=== PATIENT | female | born 1955 | race Caucasian/White ===

== ENCOUNTER 2017-04-16 10:24 | Emergency (ER) | payer MEDICARE, MEDICAID ==
--- NOTE | 2017-04-16 10:23 | EDM.PDOC ---
ED HPI GENERAL MEDICAL PROBLEM - General Chief Complaint: Lower Extremity Injury/Pain Stated Complaint: RT LEG Time Seen by Provider: 04/16/17 10:05 Source of Information: Reports: Patient, EMS, Old Records History Limitations: Reports: No Limitations - History of Present Illness INITIAL COMMENTS - FREE TEXT/NARRATIVE: 62 yo female with chronic pain presents with multiple complaints. Lives alone in an apt and is not doing well. Recently had her pain meds decreased. Is awaiting word from [place] to see if they might have anything to offer her. Called home health today and they casually advised that perhaps she should be in the hospital, in turn she called 911. Admits that her problem is not new, no new injury or sx's. 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: Other (see below) (none) Right Leg Pain Score (Numeric/FACES): 7 - Related Data Allergies Allergy/AdvReac Type Severity Reaction Status Date / Time atenolol [From Tenoretic 50] Allergy Rash Verified 04/16/17 10:15 chlorthalidone Allergy Rash Verified 04/16/17 10:15 [From Tenoretic 50] ciprofloxacin [From Cipro] Allergy Cannot Verified 04/16/17 10:15 Remember ciprofloxacin HCl Allergy Cannot Verified 04/16/17 10:15 [From Cipro] Remember diclofenac sodium Allergy Cannot Verified 04/16/17 10:15 [From Voltaren] Remember ibuprofen [From Advil] Allergy Cannot Verified 04/16/17 10:15 Remember iodine Allergy Hives Verified 04/16/17 10:15 Penicillins Allergy Cannot Verified 04/16/17 10:15 Remember propranolol HCl Allergy Swelling Verified 04/16/17 10:15 [From Inderal LA] Sulfa (Sulfonamide Allergy Rash Verified 04/16/17 10:15 Antibiotics) verapamil [Verapamil] Allergy Hives Verified 04/16/17 10:15 IVP DYES Allergy Hives Uncoded 04/16/17 10:15 METAL Allergy Rash Uncoded 04/16/17 10:15 Home Meds: Home Meds FLUoxetine [PROzac] 40 mg PO BEDTIME 07/26/13 [History] Furosemide [Lasix] 20 mg PO DAILY 07/26/13 [History] Levothyroxine [Synthroid] 100 mcg PO ACBRK 07/26/13 [History] Modafinil [Provigil] 200 mg PO DAILY PRN 07/26/13 [History] Pregabalin [Lyrica] 300 mg PO 0800,1800 07/26/13 [History] Topiramate [Topamax] 200 mg PO BEDTIME 07/26/13 [History] buPROPion [Wellbutrin XL] 300 mg PO DAILY 07/26/13 [History] cloNIDine [Catapres] 0.1 mg PO DAILY tablet 04/19/15 [Rx] metFORMIN [Glucophage] 500 mg PO BIDM tablet 04/19/15 [Rx] Omeprazole 20 mg PO DAILY PRN 05/31/15 [History] Potassium Chloride 10 meq PO 5XDAY 05/31/15 [History] rOPINIRole [Requip] 0.5 mg PO BEDTIME 05/31/15 [History] Morphine [MS Contin] 30 mg PO TID 08/20/15 [History] SUMAtriptan Succinate [Imitrex] 100 mg PO ASDIRECTED PRN 10/31/15 [History] Doxycycline [Vibra-Tabs] 100 mg PO Q12H #12 tablet 11/02/15 [Rx] predniSONE [Prednisone] 10 mg PO DAILY #10 tablet 11/02/15 [Rx] Past Medical History HEENT History: Reports: Impaired Vision, Sinusitis Other HEENT History: wears glasses Cardiovascular History: Reports: Hypertension Respiratory History: Reports: Sleep Apnea Gastrointestinal History: Reports: Other (See Below) Other Gastrointestinal History: had 4 inches of colon removed for krohns in 2011 Genitourinary History: Reports: Urinary Incontinence PROSTHETIST History: Reports: Musculoskeletal History: Reports: Fibromyalgia, Osteoarthritis, Other (See Below ) Other Musculoskeletal History: bone spurs Neurological History: Reports: Migraines Psychiatric History: Reports: Depression Endocrine/Metabolic History: Reports: Diabetes, Type II, Obesity/BMI 30+ Hematologic History: Reports: Anemia Immunologic History: Reports: Other (See Below) Other Immunologic History: torrey - Past Surgical History HEENT Surgical History: Reports: Naso-Sinus Surgery GI Surgical History: Reports: Appendectomy, Cholecystectomy, Colonoscopy, Hernia Repair/Other Endocrine Surgical History: Reports: Other (See Below) Musculoskeletal Surgical History: Reports: Joint Replacement Social & Family History - Family History HEENT: Reports: None Cardiac: Reports: None Respiratory: Reports: COPD Other Respiratory Family Hisory: father GI: Reports: Cirrhosis Other GI Family History: mother : Reports: None OBGYN: Reports: None Musculoskeletal: Reports: None Endocrine/Metabolic: Reports: None Hematologic: Reports: None Immunologic: Reports: None Dermatologic: Reports: None Oncologic: Reports: None - Tobacco Use Smoking Status *Q: Never Smoker Second Hand Smoke Exposure: No - Alcohol Use Days Per Week of Alcohol Use: 0 - Recreational Drug Use Recreational Drug Use: No Review of Systems - Review of Systems Review Of Systems: See Below Constitutional: Reports: No Symptoms Respiratory: Reports: No Symptoms Cardiovascular: Reports: No Symptoms GI/Abdominal: Reports: No Symptoms Genitourinary: Reports: No Symptoms Musculoskeletal: Reports: Leg Pain (right) Skin: Reports: No Symptoms Neurological: Reports: Other (pain down R leg) ED EXAM, GENERAL - Physical Exam Exam: See Below Exam Limited By: No Limitations General Appearance: Alert, WD/WN, No Apparent Distress, Obese Respiratory/Chest: No Respiratory Distress, Lungs Clear, Normal Breath Sounds, No Accessory Muscle Use Cardiovascular: Regular Rate, Rhythm GI/Abdominal: Soft, Non-Tender Back Exam: Normal Inspection Extremities: Normal Inspection Neurological: Alert, Oriented, CN II-XII Intact, Normal Cognition, No Motor/ Sensory Deficits, Inattentive Psychiatric: Normal Affect, Normal Mood Skin Exam: Warm, Dry, Intact, Normal Color, No Rash Lymphatic: No Adenopathy Course - Vital Signs Last Recorded V/S: Last Vital Signs Temp 36.6 C 04/16/17 10:16 Pulse 89 04/16/17 10:16 Resp 18 04/16/17 10:16 BP 123/64 04/16/17 10:16 Pulse Ox 96 04/16/17 10:16 - Orders/Labs/Meds Orders: Active Orders 24 hr Category Date Time Status Consult to Tractor Trailer Mechanic [CONS] Routine Cons 04/16/17 10:16 Active Meds: Medications Discontinued Medications Generic Name Dose Route Start Last Admin Trade Name Freq PRN Reason Stop Dose Admin Ketorolac Tromethamine 30 mg 04/16/17 10:15 04/16/17 10:29 Toradol IM 04/16/17 10:16 30 mg ONETIME ONE Administration Departure - Departure Time of Disposition: 10:42 Disposition: Home, Self-Care 01 Condition: Good Clinical Impression: Chronic pain Qualifiers: Chronic pain type: chronic pain syndrome Qualified Code(s): G89.4 - Chronic pain syndrome - Discharge Information Referrals: Joesph Dasilva MD [Primary Care Provider] - Forms: ED Department Discharge - My Orders Last 24 Hours: My Active Orders 04/16/17 10:16 Consult to Tractor Trailer Mechanic [CONS] Routine - Assessment/Plan Last 24 Hours: My Active Orders 04/16/17 10:16 Consult to Tractor Trailer Mechanic [CONS] Routine
[~2017-04-16 10:24] MED LIST: Ketorolac 30 MG/ML SDV IM ONE
[2017-04-16 12:06] VITALS: BP 144/78
== END 2017-04-16 12:18 | disposition home or self-care (01) ==
LOC: FB.ED 10:24
DX: G89.4 Chronic pain syndrome (principal); M79.604 Pain in right leg; I10 Essential (primary) hypertension; E11.9 Type 2 diabetes mellitus without complications; F32.9 Major depressive disorder, single episode, unspecified; Z86.2 Personal history of diseases of the blood and blood-forming organs and certain disorders involving the immune mechanism; Z79.84 Long term (current) use of oral hypoglycemic drugs; Z79.899 Other long term (current) drug therapy; Z88.0 Allergy status to penicillin; Z88.2 Allergy status to sulfonamides; Z88.1 Allergy status to other antibiotic agents; Z88.8 Allergy status to other drugs, medicaments and biological substances; Z91.041 Radiographic dye allergy status
CPT/HCPCS: 96372; 99283; 99284; J1885

== ENCOUNTER 2019-01-14 12:44 | Emergency (ER) | payer MEDICARE, MEDICAID ==
[2019-01-14] MEDS ORDERED: Acetaminophen/oxyCODONE 325-5 MG Tab PO ONE (13:01)
--- NOTE | 2019-01-14 13:01 | EDM.PDOC ---
ED HPI GENERAL MEDICAL PROBLEM - General Stated Complaint: KNEE PAIN Time Seen by Provider: 01/14/19 12:56 Source of Information: Reports: Patient History Limitations: Reports: No Limitations - History of Present Illness INITIAL COMMENTS - FREE TEXT/NARRATIVE: pt comes from home by EMS, with c/o tight knee pain, tells me this started about 4 weeks ago and slowly has been getting worse, denies any swelling , injury, fever , chills, leg pain or any other associated sx or concerns. pt has chronic pain syndrome and takes gabapentin as well Advil fpr chronic headaches. R knee Pain Score (Numeric/FACES): 7 - Related Data Allergies Allergy/AdvReac Type Severity Reaction Status Date / Time atenolol [From Tenoretic 50] Allergy Rash Verified 01/14/19 13:34 chlorthalidone Allergy Rash Verified 01/14/19 13:34 [From Tenoretic 50] ciprofloxacin [From Cipro] Allergy Cannot Verified 01/14/19 13:34 Remember ciprofloxacin HCl Allergy Cannot Verified 01/14/19 13:34 [From Cipro] Remember diclofenac sodium Allergy Cannot Verified 01/14/19 13:34 [From Voltaren] Remember ibuprofen [From Advil] Allergy Cannot Verified 01/14/19 13:34 Remember iodine Allergy Hives Verified 01/14/19 13:34 Penicillins Allergy Cannot Verified 01/14/19 13:34 Remember propranolol HCl Allergy Swelling Verified 01/14/19 13:34 [From Inderal LA] Sulfa (Sulfonamide Allergy Rash Verified 01/14/19 13:34 Antibiotics) verapamil [Verapamil] Allergy Hives Verified 01/14/19 13:34 IVP DYES Allergy Hives Uncoded 01/14/19 13:34 METAL Allergy Rash Uncoded 01/14/19 13:34 Home Meds: Home Meds FLUoxetine [PROzac] 40 mg PO BEDTIME 07/26/13 [History] Furosemide [Lasix] 20 mg PO DAILY 07/26/13 [History] Levothyroxine [Synthroid] 100 mcg PO ACBRK 07/26/13 [History] Modafinil [Provigil] 200 mg PO DAILY PRN 07/26/13 [History] Pregabalin [Lyrica] 300 mg PO 0800,1800 07/26/13 [History] Topiramate [Topamax] 300 mg PO BEDTIME 07/26/13 [History] cloNIDine [Catapres] 0.1 mg PO DAILY tablet 04/19/15 [Rx] metFORMIN [Glucophage] 500 mg PO BIDM tablet 04/19/15 [Rx] Potassium Chloride 20 meq PO BID 05/31/15 [History] rOPINIRole [Requip] 0.5 mg PO BEDTIME 05/31/15 [History] SUMAtriptan Succinate [Imitrex] 100 mg PO ASDIRECTED PRN 10/31/15 [History] Ascorbate Calcium [Vitamin C] 500 mg PO DAILY 04/16/17 [History] Aspirin [Halfprin] 81 mg PO DAILY 04/16/17 [History] Budesonide/Formoterol [Symbicort 160-4.5 MCG] 1 puff INH BID 04/16/17 [History] Calcium Carbonate/Vitamin D3 [Caltrate 600 + D Soft Chew Tab] 1 each PO BID 11/25 [History] Clindamycin HCl [Cleocin] 150 mg PO ASDIRECTED 04/16/17 [History] Cranberry Fruit Extract [Cranberry] 500 mg PO DAILY 04/16/17 [History] Cyanocobalamin (Vitamin B-12) [Vitamin B-12] 1,000 mcg PO DAILY 04/16/17 [ History] FLUoxetine HCl [Prozac] 20 mg PO DAILY 04/16/17 [History] Ferrous Sulfate [Iron] 325 mg PO DAILY 04/16/17 [History] Fluconazole [Diflucan] 150 mg PO DAILY 04/16/17 [History] Gabapentin [Neurontin] 600 mg PO ASDIRECTED PRN 04/16/17 [History] Multivitamin with Minerals [Multiple Vitamin] 1 tab PO DAILY 04/16/17 [History] Omeprazole 20 mg PO DAILY 04/16/17 [History] Polyethylene Glycol 3350 [MiraLAX] 17 gm PO BID 04/16/17 [History] Promethazine [Phenergan] 25 mg PO Q4H PRN 04/16/17 [History] Past Medical History HEENT History: Reports: Impaired Vision, Sinusitis Other HEENT History: wears glasses Cardiovascular History: Reports: Hypertension Respiratory History: Reports: Sleep Apnea Gastrointestinal History: Reports: Other (See Below) Other Gastrointestinal History: had 4 inches of colon removed for krohns in 2011 Genitourinary History: Reports: Urinary Incontinence MEDICAL ORDERLY History: Reports: Musculoskeletal History: Reports: Fibromyalgia, Osteoarthritis, Other (See Below ) Other Musculoskeletal History: bone spurs Neurological History: Reports: Migraines Psychiatric History: Reports: Depression Endocrine/Metabolic History: Reports: Diabetes, Type II, Obesity/BMI 30+ Hematologic History: Reports: Anemia Immunologic History: Reports: Other (See Below) Other Immunologic History: torrey - Past Surgical History HEENT Surgical History: Reports: Naso-Sinus Surgery GI Surgical History: Reports: Appendectomy, Cholecystectomy, Colonoscopy, Hernia Repair/Other Endocrine Surgical History: Reports: Other (See Below) Musculoskeletal Surgical History: Reports: Joint Replacement Social & Family History - Family History HEENT: Reports: None Cardiac: Reports: None Respiratory: Reports: COPD Other Respiratory Family Hisory: father GI: Reports: Cirrhosis Other GI Family History: mother : Reports: None OBGYN: Reports: None Musculoskeletal: Reports: None Endocrine/Metabolic: Reports: None Hematologic: Reports: None Immunologic: Reports: None Dermatologic: Reports: None Oncologic: Reports: None - Caffeine Use Caffeine Use: Reports: None ED ROS GENERAL - Review of Systems Review Of Systems: See Below Constitutional: Reports: No Symptoms HEENT: Reports: No Symptoms Respiratory: Reports: No Symptoms Cardiovascular: Reports: No Symptoms GI/Abdominal: Reports: No Symptoms Musculoskeletal: Reports: Joint Pain. Denies: Leg Pain, Joint Swelling, Muscle Pain, Muscle Stiffness Skin: Reports: No Symptoms ED EXAM, GENERAL - Physical Exam Exam: See Below Exam Limited By: No Limitations General Appearance: Alert, Mild Distress Neck: Normal Inspection Respiratory/Chest: No Respiratory Distress Cardiovascular: Normal Peripheral Pulses, Regular Rate, Rhythm GI/Abdominal: Normal Bowel Sounds, Soft, Non-Tender Back Exam: Normal Inspection Extremities: Normal Inspection, Normal Range of Motion, Other (tender over the anterior side of right frank, no joint instabilty , no joint effusion, or warmth , ROM at right knee is full, no leg swelling or edema or calf pain. RLE is NVI. ) Course - Vital Signs Text/Narrative:: Xray results show no acute findings, pt is comfortable anfd ambulatory after percocet without problems. pt has right knee pain, possible related to tendinitis , supportive mng was recommended and f/u with PCP. rx on Percocet 20 tablets was prescribed. Last Recorded V/S: Last Vital Signs Temp 36.6 C 08/06/19 12:44 Pulse 95 01/14/19 14:34 Resp 20 01/14/19 14:34 BP 153/70 H 01/14/19 14:34 Pulse Ox 98 01/14/19 14:34 - Orders/Labs/Meds Orders: Active Orders 24 hr Category Date Time Status Knee 3V Rt [CR] Stat Exams 01/14/19 13:01 Ordered Meds: Medications Discontinued Medications Generic Name Dose Route Start Last Admin Trade Name Manny PRN Reason Stop Dose Admin Oxycodone/Acetaminophen 2 tab 01/14/19 13:01 01/14/19 13:32 Percocet 325-5 Mg PO 01/14/19 13:02 2 tab ONETIME ONE Administration Departure - Departure Time of Disposition: 14:44 Disposition: Home, Self-Care 01 Clinical Impression: Knee pain - Discharge Information - My Orders Last 24 Hours: My Active Orders 01/14/19 13:01 Knee 3V Rt [CR] Stat - Assessment/Plan Last 24 Hours: My Active Orders 01/14/19 13:01 Knee 3V Rt [CR] Stat
[2019-01-14 15:30] VITALS: BP 157/73; PULSE 96
--- NOTE | 2019-01-15 09:10 | CR ---
INDICATION: Right knee pain. RIGHT KNEE: Frontal, lateral, and patellar sunrise views with four images of the right knee were obtained 01/14/19 and compared with 08/02/11. Position and alignment of the total knee arthroplasty appears to be satisfactory , as previously, without evidence of a complicating process. IMPRESSION: Satisfactory appearance post TKA. SUHAS
== END 2019-01-14 15:20 | disposition home or self-care (01) ==
LOC: FB.ED 12:44
DX: M25.561 Pain in right knee (principal); I10 Essential (primary) hypertension; E11.9 Type 2 diabetes mellitus without complications; F32.9 Major depressive disorder, single episode, unspecified; Z88.8 Allergy status to other drugs, medicaments and biological substances; Z88.1 Allergy status to other antibiotic agents; Z88.6 Allergy status to analgesic agent; Z91.048 Other nonmedicinal substance allergy status; Z88.0 Allergy status to penicillin; Z88.2 Allergy status to sulfonamides; Z91.041 Radiographic dye allergy status; Z79.899 Other long term (current) drug therapy; Z79.82 Long term (current) use of aspirin; Z79.84 Long term (current) use of oral hypoglycemic drugs
CPT/HCPCS: 73562; 99283; A9270

== ENCOUNTER 2019-02-07 07:58 | Emergency (ER) | payer MEDICARE, MEDICAID ==
[2019-02-07 08:10] VITALS: BP 157/79
[2019-02-07] MEDS ORDERED: Acetaminophen/oxyCODONE 325-5 MG Tab PO ONE (08:20)
[2019-02-07] MEDS ORDERED: Ketorolac 60 MG/2 ML SDV IM ONE (08:20)
--- NOTE | 2019-02-07 08:31 | EDM.PDOC ---
ED HPI GENERAL MEDICAL PROBLEM - General Chief Complaint: Lower Extremity Injury/Pain Stated Complaint: LEG PAIN Time Seen by Provider: 02/07/19 08:15 Source of Information: Reports: Patient - History of Present Illness INITIAL COMMENTS - FREE TEXT/NARRATIVE: Patient is a 63 YO WH with known history of chronic pain presented to the ED because of worsening pain on the right kne. She denies any recent trauma or fall. She is taking gabapentin and duloxetine but didn't help. The pasin is sharp 7 /10 and worse in ambulation. right knee and thigh Pain Score (Numeric/FACES): 6 - Related Data Allergies Allergy/AdvReac Type Severity Reaction Status Date / Time atenolol [From Tenoretic 50] Allergy Rash Verified 02/07/19 08:07 chlorthalidone Allergy Rash Verified 02/07/19 08:07 [From Tenoretic 50] ciprofloxacin [From Cipro] Allergy Cannot Verified 02/07/19 08:07 Remember ciprofloxacin HCl Allergy Cannot Verified 02/07/19 08:07 [From Cipro] Remember diclofenac sodium Allergy Cannot Verified 02/07/19 08:07 [From Voltaren] Remember ibuprofen [From Advil] Allergy Cannot Verified 02/07/19 08:07 Remember iodine Allergy Hives Verified 02/07/19 08:07 Penicillins Allergy Cannot Verified 02/07/19 08:07 Remember propranolol HCl Allergy Swelling Verified 02/07/19 08:07 [From Inderal LA] Sulfa (Sulfonamide Allergy Rash Verified 02/07/19 08:07 Antibiotics) verapamil [Verapamil] Allergy Hives Verified 02/07/19 08:07 IVP DYES Allergy Hives Uncoded 02/07/19 08:08 METAL Allergy Rash Uncoded 02/07/19 08:08 Home Meds: Home Meds FLUoxetine [PROzac] 40 mg PO BEDTIME 07/26/13 [History] Levothyroxine [Synthroid] 100 mcg PO ACBRK 07/26/13 [History] Modafinil [Provigil] 200 mg PO DAILY PRN 07/26/13 [History] Pregabalin [Lyrica] 300 mg PO 0800,1800 07/26/13 [History] Topiramate [Topamax] 400 mg PO BEDTIME 07/26/13 [History] cloNIDine [Catapres] 0.1 mg PO DAILY tablet 04/19/15 [Rx] Potassium Chloride 20 meq PO QID 05/31/15 [History] rOPINIRole [Requip] 0.5 mg PO BEDTIME 05/31/15 [History] SUMAtriptan Succinate [Imitrex] 100 mg PO ASDIRECTED PRN 10/31/15 [History] Ascorbate Calcium [Vitamin C] 500 mg PO DAILY 04/16/17 [History] Aspirin [Halfprin] 81 mg PO DAILY 04/16/17 [History] Cranberry Fruit Extract [Cranberry] 500 mg PO DAILY 04/16/17 [History] Cyanocobalamin (Vitamin B-12) [Vitamin B-12] 1,000 mcg PO DAILY 04/16/17 [ History] Ferrous Sulfate [Iron] 325 mg PO TID 04/16/17 [History] Gabapentin [Neurontin] 600 mg PO QID 04/16/17 [History] Multivitamin with Minerals [Multiple Vitamin] 1 tab PO DAILY 04/16/17 [History] Omeprazole 20 mg PO DAILY 04/16/17 [History] Polyethylene Glycol 3350 [MiraLAX] 17 gm PO BID PRN 04/16/17 [History] Promethazine [Phenergan] 25 mg PO Q4H PRN 04/16/17 [History] metFORMIN [Glucophage] 1,000 mg PO BIDM 01/14/19 [History] Cyclobenzaprine HCl 10 mg PO TID PRN 02/07/19 [History] traMADol [Ultram] 100 mg PO Q8H PRN #15 tab 02/07/19 [Rx] Past Medical History HEENT History: Reports: Cataract, Impaired Vision, Sinusitis Other HEENT History: wears glasses Cardiovascular History: Reports: Hypertension Respiratory History: Reports: Sleep Apnea Gastrointestinal History: Reports: Other (See Below) Other Gastrointestinal History: had 4 inches of colon removed for krohns in 2011 Genitourinary History: Reports: Urinary Incontinence 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: Musculoskeletal History: Reports: Fibromyalgia, Osteoarthritis, Other (See Below ) Other Musculoskeletal History: bone spurs Neurological History: Reports: Migraines Psychiatric History: Reports: Depression Endocrine/Metabolic History: Reports: Diabetes, Type II, Obesity/BMI 30+ Hematologic History: Reports: Anemia Immunologic History: Reports: Other (See Below) Other Immunologic History: torrey - Infectious Disease History Infectious Disease History: Reports: Chicken Pox, MRSA, Mumps, Shingles - Past Surgical History HEENT Surgical History: Reports: Naso-Sinus Surgery GI Surgical History: Reports: Appendectomy, Cholecystectomy, Colonoscopy, Hernia Repair/Other Endocrine Surgical History: Reports: Other (See Below) Musculoskeletal Surgical History: Reports: Joint Replacement Social & Family History - Family History HEENT: Reports: None Cardiac: Reports: None Respiratory: Reports: COPD Other Respiratory Family Hisory: father GI: Reports: Cirrhosis Other GI Family History: mother : Reports: None OBGYN: Reports: None Musculoskeletal: Reports: None Endocrine/Metabolic: Reports: None Hematologic: Reports: None Immunologic: Reports: None Dermatologic: Reports: None Oncologic: Reports: None - Tobacco Use Smoking Status *Q: Never Smoker - Caffeine Use Caffeine Use: Reports: None - Recreational Drug Use Recreational Drug Use: No Review of Systems - Review of Systems Review Of Systems: See Below Constitutional: Reports: No Symptoms Eyes: Reports: No Symptoms Ears: Reports: No Symptoms Nose: Reports: No Symptoms Mouth/Throat: Reports: No Symptoms Respiratory: Reports: No Symptoms Cardiovascular: Reports: No Symptoms GI/Abdominal: Reports: No Symptoms Genitourinary: Reports: No Symptoms Musculoskeletal: Reports: Other (rt knee pain) Skin: Reports: No Symptoms Neurological: Reports: No Symptoms Psychiatric: Reports: No Symptoms ED EXAM, GENERAL - Physical Exam Exam: See Below Exam Limited By: No Limitations General Appearance: Alert, No Apparent Distress Back Exam: Normal Inspection, Full Range of Motion Extremities: Normal Inspection, Normal Range of Motion, Other (tnerness medial and andterior aspect of the rt kne.) Neurological: Alert, Oriented, CN II-XII Intact, Normal Cognition Psychiatric: Normal Affect, Normal Mood Skin Exam: Warm, Dry, Intact, Normal Color, No Rash Course - Vital Signs Last Recorded V/S: Last Vital Signs Temp 36.8 C 02/07/19 08:08 Pulse 87 02/07/19 08:08 Resp 16 02/07/19 08:08 BP 157/79 H 02/07/19 08:08 Pulse Ox 98 02/07/19 08:08 - Orders/Labs/Meds Meds: Medications Discontinued Medications Generic Name Dose Route Start Last Admin Trade Name Freq PRN Reason Stop Dose Admin Ketorolac Tromethamine 60 mg 02/07/19 08:20 Toradol IM 02/07/19 08:21 ONETIME ONE Oxycodone/Acetaminophen 2 tab 02/07/19 08:20 Percocet 325-5 Mg PO 02/07/19 08:21 ONETIME ONE Departure - Departure Time of Disposition: 08:30 Disposition: Home, Self-Care 01 Condition: Good Clinical Impression: Chronic knee pain - Discharge Information Prescriptions: traMADol [Ultram] 100 mg PO Q8H PRN #15 tab PRN Reason: Pain Instructions: Knee Pain, Adult Forms: ED Department Discharge
== END 2019-02-07 08:55 | disposition home or self-care (01) ==
LOC: FB.ED 07:58
DX: G89.29 Other chronic pain (principal); M25.561 Pain in right knee; I10 Essential (primary) hypertension; E11.9 Type 2 diabetes mellitus without complications; D64.9 Anemia, unspecified; F32.9 Major depressive disorder, single episode, unspecified; G47.33 Obstructive sleep apnea (adult) (pediatric); M19.90 Unspecified osteoarthritis, unspecified site; Z88.8 Allergy status to other drugs, medicaments and biological substances; Z88.1 Allergy status to other antibiotic agents; Z88.6 Allergy status to analgesic agent; Z88.0 Allergy status to penicillin; Z91.048 Other nonmedicinal substance allergy status; Z88.2 Allergy status to sulfonamides; Z91.041 Radiographic dye allergy status; Z79.82 Long term (current) use of aspirin; Z79.84 Long term (current) use of oral hypoglycemic drugs; Z79.899 Other long term (current) drug therapy
CPT/HCPCS: 96372; 99283; A9270; J1885

== ENCOUNTER 2019-04-09 13:53 | Emergency (ER) | payer MEDICARE, MEDICAID ==
--- NOTE | 2019-04-09 14:49 | EDM.PDOC ---
ED HPI GENERAL MEDICAL PROBLEM - General Chief Complaint: Respiratory Problem Time Seen by Provider: 04/09/19 14:20 Source of Information: Reports: Patient - History of Present Illness INITIAL COMMENTS - FREE TEXT/NARRATIVE: pt c/o productive cough , gen weakness and low grade fever at home X 4 weeks, denies emesis , diarrhea, any other associated sx or concerns. pt has multiple morbidities along with chronic pain syndrome, report falling at home yesterday and indicate that all her body is hurting. Generalized Pain Score (Numeric/FACES): 10 - Related Data Allergies Allergy/AdvReac Type Severity Reaction Status Date / Time atenolol [From Tenoretic 50] Allergy Rash Verified 04/09/19 13:58 chlorthalidone Allergy Rash Verified 04/09/19 13:58 [From Tenoretic 50] ciprofloxacin [From Cipro] Allergy Cannot Verified 04/09/19 13:58 Remember ciprofloxacin HCl Allergy Cannot Verified 04/09/19 13:58 [From Cipro] Remember diclofenac sodium Allergy Cannot Verified 04/09/19 13:58 [From Voltaren] Remember ibuprofen [From Advil] Allergy Cannot Verified 04/09/19 13:58 Remember iodine Allergy Hives Verified 04/09/19 13:58 propranolol HCl Allergy Swelling Verified 04/09/19 13:58 [From Inderal LA] Sulfa (Sulfonamide Allergy Rash Verified 04/09/19 13:58 Antibiotics) verapamil [Verapamil] Allergy Hives Verified 04/09/19 13:58 IVP DYES Allergy Hives Uncoded 04/09/19 13:58 METAL Allergy Rash Uncoded 04/09/19 13:58 Home Meds: Home Meds FLUoxetine [PROzac] 40 mg PO BEDTIME 07/26/13 [History] Levothyroxine [Synthroid] 100 mcg PO ACBRK 07/26/13 [History] Modafinil [Provigil] 200 mg PO DAILY PRN 07/26/13 [History] Pregabalin [Lyrica] 300 mg PO 0800,1800 07/26/13 [History] Topiramate [Topamax] 400 mg PO BEDTIME 07/26/13 [History] cloNIDine [Catapres] 0.1 mg PO DAILY tablet 04/19/15 [Rx] Potassium Chloride 20 meq PO QID 05/31/15 [History] rOPINIRole [Requip] 0.5 mg PO BEDTIME 05/31/15 [History] SUMAtriptan Succinate [Imitrex] 100 mg PO ASDIRECTED PRN 10/31/15 [History] Ascorbate Calcium [Vitamin C] 500 mg PO DAILY 04/16/17 [History] Aspirin [Halfprin] 81 mg PO DAILY 04/16/17 [History] Cranberry Fruit Extract [Cranberry] 500 mg PO DAILY 04/16/17 [History] Cyanocobalamin (Vitamin B-12) [Vitamin B-12] 1,000 mcg PO DAILY 04/16/17 [ History] Ferrous Sulfate [Iron] 325 mg PO TID 04/16/17 [History] Gabapentin [Neurontin] 600 mg PO QID 04/16/17 [History] Multivitamin with Minerals [Multiple Vitamin] 1 tab PO DAILY 04/16/17 [History] Omeprazole 20 mg PO DAILY 04/16/17 [History] Polyethylene Glycol 3350 [MiraLAX] 17 gm PO BID PRN 04/16/17 [History] Promethazine [Phenergan] 25 mg PO Q4H PRN 04/16/17 [History] metFORMIN [Glucophage] 1,000 mg PO BIDM 01/14/19 [History] Cyclobenzaprine HCl 10 mg PO TID PRN 02/07/19 [History] Past Medical History HEENT History: Reports: Cataract, Impaired Vision, Sinusitis Other HEENT History: wears glasses Cardiovascular History: Reports: Hypertension Respiratory History: Reports: Asthma, COPD, Sleep Apnea Gastrointestinal History: Reports: Other (See Below) Other Gastrointestinal History: had 4 inches of colon removed for Crohns in 2011 Genitourinary History: Reports: Urinary Incontinence THRESHER BROOMCORN History: Reports: Other THRESHER BROOMCORN History: Musculoskeletal History: Reports: Arthritis, Fibromyalgia, Osteoarthritis, Other (See Below) Other Musculoskeletal History: bone spurs Neurological History: Reports: Migraines Psychiatric History: Reports: Anxiety, Depression Endocrine/Metabolic History: Reports: Diabetes, Type II, Hypothyroidism, Obesity /BMI 30+ Hematologic History: Reports: Anemia Immunologic History: Reports: Other (See Below) Other Immunologic History: torrey - Infectious Disease History Infectious Disease History: Reports: Chicken Pox, MRSA, Mumps, Shingles - Past Surgical History HEENT Surgical History: Reports: Naso-Sinus Surgery GI Surgical History: Reports: Appendectomy, Cholecystectomy, Colon, Colonoscopy , Hernia Repair/Other Endocrine Surgical History: Reports: Other (See Below) Musculoskeletal Surgical History: Reports: Joint Replacement Social & Family History - Family History Family Medical History: Noncontributory HEENT: Reports: None Cardiac: Reports: None Respiratory: Reports: COPD Other Respiratory Family Hisory: father GI: Reports: Cirrhosis Other GI Family History: mother : Reports: None OBGYN: Reports: None Musculoskeletal: Reports: None Endocrine/Metabolic: Reports: None Hematologic: Reports: None Immunologic: Reports: None Dermatologic: Reports: None Oncologic: Reports: None - Tobacco Use Smoking Status *Q: Never Smoker - Caffeine Use Caffeine Use: Reports: None - Recreational Drug Use Recreational Drug Use: No ED ROS GENERAL - Review of Systems Review Of Systems: See Below Constitutional: Reports: Fever, Chills, Fatigue HEENT: Reports: No Symptoms Respiratory: Reports: Shortness of Breath, Wheezing, Cough Cardiovascular: Reports: No Symptoms GI/Abdominal: Reports: No Symptoms : Reports: No Symptoms Musculoskeletal: Reports: Back Pain, Muscle Pain Skin: Reports: No Symptoms Neurological: Reports: No Symptoms ED EXAM, GENERAL - Physical Exam Exam: See Below Exam Limited By: No Limitations General Appearance: Alert, Mild Distress Eye Exam: Bilateral Eye: Normal Inspection Ears: Normal External Exam, Normal Canal, Normal TMs Nose: Normal Inspection Throat/Mouth: Normal Inspection, Normal Oropharynx Head: Atraumatic Neck: Normal Inspection, Supple, Non-Tender Respiratory/Chest: Lungs Clear, No Accessory Muscle Use Cardiovascular: Normal Peripheral Pulses, Regular Rate, Rhythm GI/Abdominal: Normal Bowel Sounds, Soft, Non-Tender Extremities: Normal Inspection, Normal Range of Motion Neurological: Alert, Oriented, CN II-XII Intact, No Motor/Sensory Deficits Psychiatric: Normal Affect Course - Vital Signs Text/Narrative:: labs results/ CXR were explained to pt. pt has UTI and LLL pneumonia, she has stable vitals , afebrile here, sats at 94 % , RR at 20 and she is medically stable for out patient mng. pt was given Rocephin 1 gm IM and started on Levaquin 500 mg daily x 10 days. urine will be cultured , pt to follow with PCP in 2 days for re-check. Last Recorded V/S: Last Vital Signs Temp 36.5 C 04/09/19 13:53 Pulse 99 04/09/19 13:53 Resp 20 04/09/19 13:53 BP 124/80 04/09/19 13:53 Pulse Ox 94 L 04/09/19 13:53 - Orders/Labs/Meds Orders: Active Orders 24 hr Category Date Time Status CXR [Chest 2V] [CR] Stat Exams 04/09/19 14:49 Taken CULTURE STREP A CONFIRMATION [RM] Stat Lab 04/09/19 14:49 Results CULTURE URINE [RM] Stat Lab 04/09/19 15:48 Received STREP SCRN A RAPID W CULT CONF [RM] Stat Lab 04/09/19 14:49 Results Labs: Laboratory Tests 04/09/19 04/09/19 04/09/19 Range/Units 14:20 14:20 15:48 WBC 10.7 (4.5-12.0) X10-3/uL RBC 3.51 (3.23-5.20) x10(6)uL Hgb 10.5 L (11.5-15.5) g/dL Hct 31.4 (30.0-51.3) % MCV 89.6 (80-96) fL MCH 29.9 (27.7-33.6) pg MCHC 33.4 (32.2-35.4) g/dL RDW 15.6 H (11.5-15.5) % Plt Count 158 (125-369) X10(3)uL MPV 10.0 (7.4-10.4) fL Neut % (Auto) 75.0 (46-82) % Lymph % (Auto) 18.2 (13-37) % [place] % (Auto) 4.8 (4-12) % Eos % (Auto) 2 (1.0-5.0) % Baso % (Auto) 0 (0-2) % Neut # (Auto) 8.0 (1.6-8.3) # Lymph # (Auto) 2.0 (0.6-5.0) # Bond # (Auto) 0.5 (0.0-1.3) # Eos # (Auto) 0.2 (0.0-0.8) # Baso # (Auto) 0.0 (0.0-0.2) # Sodium 140 (135-145) mmol/L Potassium 3.0 L (3.5-5.3) mmol/L Chloride 104 (100-110) mmol/L Carbon Dioxide 23 (21-32) mmol/L BUN 18 (7-18) mg/dL Creatinine 1.2 H (0.55-1.02) mg/dL Est Cr Clr Drug Dosing 35.74 mL/min Estimated GFR (MDRD) 45 L (>60) BUN/Creatinine Ratio 15.0 (9-20) Glucose 150 H (80-116) mg/dL Calcium 9.5 (8.6-10.2) mg/dL Total Bilirubin 0.4 (0.1-1.3) mg/dL AST 22 (5-25) IU/L ALT 26 (12-36) U/L Alkaline Phosphatase 66 (56-112) IU/L Total Protein 7.6 (6.0-8.0) g/dL Albumin 2.7 L (3.2-4.6) g/dL Globulin 4.9 g/dL Albumin/Globulin Ratio 0.6 Urine Color Yellow (YELLOW) Urine Appearance Cloudy (CLEAR) Urine pH 5.0 (5.0-6.5) Ur Specific [place] 1.015 (1.010-1.025) Urine Protein 30 H (NEGATIVE) mg/dL Urine Glucose (UA) Normal (NORMAL) mg/dL Urine Ketones 15 H (NEGATIVE) mg/dL Urine Occult Blood Large H (NEGATIVE) Urine Nitrite Positive H (NEGATIVE) Urine Bilirubin Small H (NEGATIVE) Urine Urobilinogen 1 H (NEGATIVE) mg/dL Ur Leukocyte Esterase Large H (NEGATIVE) Urine RBC 30-40 H (0-5) Urine WBC 10-20 H (0-5) Ur Squamous Epith Cells Moderate H (NS,R,O) Urine Bacteria Many H (NS) Fine Granular Casts Occasional H (NS) Urine Mucus Moderate H (NS) Departure - Departure Time of Disposition: 16:17 Disposition: Home, Self-Care 01 Clinical Impression: LLL pneumonia - Discharge Information Forms: ED Department Discharge - My Orders Last 24 Hours: My Active Orders 04/09/19 14:49 CXR [Chest 2V] [CR] Stat CULTURE STREP A CONFIRMATION [RM] Stat STREP SCRN A RAPID W CULT CONF [RM] Stat 04/09/19 15:48 CULTURE URINE [RM] Stat - Assessment/Plan Last 24 Hours: My Active Orders 04/09/19 14:49 CXR [Chest 2V] [CR] Stat CULTURE STREP A CONFIRMATION [RM] Stat STREP SCRN A RAPID W CULT CONF [] Stat 04/09/19 15:48 CULTURE URINE [RM] Stat
[2019-04-09] MEDS ORDERED: cefTRIAXone 1 GM Vial IM ONE (16:18)
[2019-04-09 19:40] VITALS: BP 124/62; PULSE 94
--- NOTE | 2019-04-11 10:24 | CR ---
INDICATION: Cough. CHEST: PA and lateral views of the chest were obtained 04/09/19 and compared with 11/02/15 and 10/31/15, revealing some interstitial appearing infiltration, perihilar on the left and mid lung field and extending into the lower lung field also on the left. These infiltrates are suggestive of pneumonia and possibly could be on the basis of aspiration. This should be correlate clinically. No grossly consolidating pneumonia or effusion was seen. The heart did not appear grossly enlarged. The aorta is mildly tortuous with calcification in the arch. Bridging hyperostotic changes are noted throughout the thoracic spine. IMPRESSION: Findings suggest pneumonia in the left mid to lower lung field but should be correlated clinically, as other etiology cannot be entirely excluded. Aspiration pneumonia could be present - correlate clinically. Report was given by phone to Dr. Plaza on 04/10/19. [facility]
== END 2019-04-09 18:10 | disposition home or self-care (01) ==
LOC: FB.ED 13:53
DX: J18.1 Lobar pneumonia, unspecified organism (principal); I10 Essential (primary) hypertension; J44.9 Chronic obstructive pulmonary disease, unspecified; E66.9 Obesity, unspecified; E11.9 Type 2 diabetes mellitus without complications; E03.9 Hypothyroidism, unspecified; Z88.6 Allergy status to analgesic agent; Z88.1 Allergy status to other antibiotic agents; Z88.2 Allergy status to sulfonamides; Z88.8 Allergy status to other drugs, medicaments and biological substances; Z91.048 Other nonmedicinal substance allergy status; Z79.899 Other long term (current) drug therapy; Z79.82 Long term (current) use of aspirin; Z79.84 Long term (current) use of oral hypoglycemic drugs; Z68.36 Body mass index [BMI] 36.0-36.9, adult
CPT/HCPCS: 36415; 71046; 80053; 81001; 85025; 87081; 87086; 87088; 87186; 87804; 87804-59; 87880-QW; 96372; 99283; 99283-25; J0696

== ENCOUNTER 2019-12-02 16:25 | Emergency (ER) | payer MEDICARE, MEDICAID ==
[2019-12-02] MEDS ORDERED: Polyethylene Glycol 3350 Powder 17 GM Packet PO ONE (16:57)
[2019-12-02] MEDS ORDERED: Magnesium Citrate Solution 296 ML Bottle PO ONE (16:59)
[2019-12-02] MEDS ORDERED: Ondansetron 4 MG/2 ML SDV IVPUSH ONE ×2 (16:59→19:52)
[2019-12-02] MEDS ORDERED: Sodium Chloride 0.9% 1,000 ML IV SCH (17:15)
[2019-12-02] MEDS ORDERED: Morphine 2 MG/ML Syringe IVPUSH ONE (18:21)
--- NOTE | 2019-12-02 19:52 | EDM.PDOC ---
ED HPI GENERAL MEDICAL PROBLEM - General Stated Complaint: CONSTIPATED Time Seen by Provider: 12/02/19 17:20 Source of Information: Reports: Patient History Limitations: Reports: No Limitations - History of Present Illness INITIAL COMMENTS - FREE TEXT/NARRATIVE: Patient presented to the ED from the clinic because of low back pain and constipation. The pain is 4/10, denies any N/V but has constipated for 10 days. There is no associated fever,chills, cough or cold symptoms. lower back Pain Score (Numeric/FACES): 10 - Related Data Allergies Allergy/AdvReac Type Severity Reaction Status Date / Time atenolol [From Tenoretic 50] Allergy Rash Verified 12/02/19 23:27 chlorthalidone Allergy Rash Verified 12/02/19 23:27 [From Tenoretic 50] ciprofloxacin [From Cipro] Allergy Cannot Verified 12/02/19 23:27 Remember ciprofloxacin HCl Allergy Cannot Verified 12/02/19 23:27 [From Cipro] Remember diclofenac sodium Allergy Cannot Verified 12/02/19 23:27 [From Voltaren] Remember ibuprofen [From Advil] Allergy Cannot Verified 12/02/19 23:27 Remember iodine Allergy Hives Verified 12/02/19 23:27 propranolol HCl Allergy Swelling Verified 12/02/19 23:27 [From Inderal LA] Sulfa (Sulfonamide Allergy Rash Verified 12/02/19 23:27 Antibiotics) verapamil [Verapamil] Allergy Hives Verified 12/02/19 23:27 IVP DYES Allergy Hives Uncoded 12/02/19 23:27 METAL Allergy Rash Uncoded 12/02/19 23:27 Home Meds: Home Meds FLUoxetine [PROzac] 40 mg PO DAILY 07/26/13 [History] Levothyroxine [Synthroid] 100 mcg PO ACBRK 07/26/13 [History] Topiramate [Topamax] 400 mg PO BEDTIME 07/26/13 [History] modafiniL [Provigil] 200 mg PO DAILY PRN 07/26/13 [History] Potassium Chloride 20 meq PO BID 05/31/15 [History] rOPINIRole [Requip] 0.5 mg PO ASDIRECTED PRN 05/31/15 [History] SUMAtriptan succinate [Imitrex] 100 mg PO ASDIRECTED PRN 10/31/15 [History] Ascorbate Calcium [Vitamin C] 500 mg PO DAILY 04/16/17 [History] Aspirin [Halfprin] 81 mg PO DAILY 04/16/17 [History] Cranberry Fruit Extract [Cranberry] 500 mg PO DAILY 04/16/17 [History] Cyanocobalamin (Vitamin B-12) [Vitamin B-12] 1,000 mcg PO DAILY 04/16/17 [History] Ferrous Sulfate [Iron] 325 mg PO TID 04/16/17 [History] Multivitamin with Minerals [Multiple Vitamin] 1 tab PO DAILY 04/16/17 [History] Omeprazole 20 mg PO DAILY 04/16/17 [History] Promethazine [Phenergan] 25 mg PO Q4H PRN 04/16/17 [History] metFORMIN [Glucophage] 1,000 mg PO BIDM 01/14/19 [History] Cyclobenzaprine HCl 10 mg PO TID 02/07/19 [History] .Vitamin D High Potency 1,000 units PO DAILY 12/02/19 [History] Albuterol [Ventolin HFA] 2 puff INH Q4HR PRN 12/02/19 [History] Albuterol/Ipratropium [DuoNeb 3.0-0.5 MG/3 ML] 3 ml INH Q6H 12/02/19 [History] Brimonidine [Alphagan 0.2% Ophth Soln] 1 dose .XX ASDIRECTED 12/02/19 [History] Fluticasone Propionate [Flovent HFA 110 MCG] 2 puff INH BID 12/02/19 [History] Ibuprofen 200 mg PO Q4H PRN 12/02/19 [History] Insulin Glarg,Human.Rec.Analog [Lantus Solostar] 56 - 60 unit SUBCUT BEDTIME 12/02/19 [History] KCl/Na Sulf,Bicarb,Cl/PEG 3351 [GoLytely] 4,000 ml PO ONETIME #1 bottle 12/02/19 [Rx] Losartan [Cozaar] 50 - 100 mg PO DAILY 12/02/19 [History] Magnesium 400 mg PO DAILY 12/02/19 [History] Meclizine [Antivert] 25 mg PO ASDIRECTED PRN 12/02/19 [History] Mupirocin Oint [Bactroban Oint] 22 gm LISA BID 12/02/19 [History] Olodaterol HCl [Striverdi Respimat] 2 ampule IH DAILY 12/02/19 [History] Ondansetron [Zofran ODT] 4 mg PO Q4H PRN #7 tab.dis 12/02/19 [Rx] Pregabalin [Lyrica] 300 mg PO BID 12/02/19 [History] Tiotropium [place] [Spiriva Respimat] 2 puff INH DAILY 12/02/19 [History] Triamcinolone Acetonide [Kenalog 0.1% Crm] 1 applic TOP BID PRN 12/02/19 [Hi story] clindamycin HCL [Cleocin] 600 mg PO ASDIRECTED PRN 12/02/19 [History] fluorouraciL [Efudex 5% Cream] 40 gm .XX ASDIRECTED 12/02/19 [History] Past Medical History HEENT History: Reports: Cataract, Impaired Vision, Sinusitis Other HEENT History: wears glasses Cardiovascular History: Reports: Hypertension Respiratory History: Reports: Asthma, COPD, Sleep Apnea Gastrointestinal History: Reports: Other (See Below) Other Gastrointestinal History: had 4 inches of colon removed for Crohns in 2011 Genitourinary History: Reports: Urinary Incontinence MANAGER AREA History: Reports: Other MANAGER AREA History: Musculoskeletal History: Reports: Arthritis, Fibromyalgia, Osteoarthritis, Other (See Below) Other Musculoskeletal History: bone spurs Neurological History: Reports: Migraines Psychiatric History: Reports: Anxiety, Depression Endocrine/Metabolic History: Reports: Diabetes, Type II, Hypothyroidism, Obesity/BMI 30+ Hematologic History: Reports: Anemia Immunologic History: Reports: Other (See Below) Other Immunologic History: torrey - Infectious Disease History Infectious Disease History: Reports: Chicken Pox, MRSA, Mumps, Shingles - Past Surgical History HEENT Surgical History: Reports: Naso-Sinus Surgery GI Surgical History: Reports: Appendectomy, Cholecystectomy, Colon, Colonoscopy, Hernia Repair/Other Endocrine Surgical History: Reports: Other (See Below) Musculoskeletal Surgical History: Reports: Joint Replacement Social & Family History - Family History Family Medical History: Noncontributory HEENT: Reports: None Cardiac: Reports: None Respiratory: Reports: COPD Other Respiratory Family Hisory: father GI: Reports: Cirrhosis Other GI Family History: mother : Reports: None OBGYN: Reports: None Musculoskeletal: Reports: None Endocrine/Metabolic: Reports: None Hematologic: Reports: None Immunologic: Reports: None Dermatologic: Reports: None Oncologic: Reports: None - Caffeine Use Caffeine Use: Reports: None ED ROS GENERAL - Review of Systems Review Of Systems: See Below Constitutional: Reports: No Symptoms HEENT: Reports: No Symptoms Respiratory: Reports: Shortness of Breath Cardiovascular: Reports: No Symptoms Endocrine: Reports: No Symptoms GI/Abdominal: Reports: No Symptoms : Reports: No Symptoms Musculoskeletal: Reports: No Symptoms Skin: Reports: No Symptoms Neurological: Reports: Seizure Psychiatric: Reports: No Symptoms Hematologic/Lymphatic: Reports: No Symptoms Immunologic: Reports: No Symptoms ED EXAM, GI/ABD - Physical Exam Exam: See Below Exam Limited By: No Limitations General Appearance: Alert, No Apparent Distress Ears: Normal External Exam, Normal Canal, Hearing Grossly Normal Nose: Normal Inspection, Normal Mucosa Throat/Mouth: Normal Inspection, Normal Lips, Normal Teeth, Normal Gums Head: Atraumatic, Normocephalic Neck: Normal Inspection, Supple, Non-Tender, Full Range of Motion Respiratory/Chest: No Respiratory Distress, Crackles Cardiovascular: Normal Peripheral Pulses, Regular Rate, Rhythm, No Edema, No JVD, No Murmur GI/Abdominal Exam: Normal Bowel Sounds, Soft, Non-Tender, No Organomegaly Back Exam: Normal Inspection, Full Range of Motion Extremities: Normal Inspection, Normal Range of Motion, Non-Tender Neurological: Alert, Oriented, CN II-XII Intact, Normal Cognition Course - Vital Signs Text/Narrative:: Labs/Abd CT was discussed with patient and verbalized full understanding Miralax 17 gm x 2 doses Magnesium citrate 1 bottle Senna S 2 tablets PO Zofran 4 mg IV x1 NS 1 L bolus Last Recorded V/S: Last Vital Signs Temp 36.2 C 12/02/19 16:25 Pulse 93 12/02/19 16:25 Resp 18 12/02/19 16:25 BP 163/71 H 12/02/19 16:25 Pulse Ox 99 12/02/19 16:25 - Orders/Labs/Meds Orders: Active Orders 24 hr Category Date Time Status Abdomen Pelvis wo Cont [CT] Stat Exams 12/02/19 19:10 Taken Labs: Laboratory Tests 12/02/19 12/02/19 12/02/19 Range/Units 17:03 17:03 17:03 WBC 7.8 (4.5-12.0) X10-3/uL RBC 3.61 (3.23-5.20) x10(6)uL Hgb 10.9 L (11.5-15.5) g/dL Hct 34.3 (30.0-51.3) % MCV 95.0 (80-96) fL MCH 30.1 (27.7-33.6) pg MCHC 31.7 L (32.2-35.4) g/dL RDW 15.2 (11.5-15.5) % Plt Count 159 (125-369) X10(3)uL MPV 9.6 (7.4-10.4) fL Neut % (Auto) 73.8 (46-82) % Lymph % (Auto) 21.1 (13-37) % [place] % (Auto) 3.5 L (4-12) % Eos % (Auto) 1 (1.0-5.0) % Baso % (Auto) 1 (0-2) % Neut # (Auto) 5.7 (1.6-8.3) # Lymph # (Auto) 1.7 (0.6-5.0) # [place] # (Auto) 0.3 (0.0-1.3) # Eos # (Auto) 0.1 (0.0-0.8) # Baso # (Auto) 0.0 (0.0-0.2) # Sodium 138 (135-145) mmol/L Potassium 3.8 (3.5-5.3) mmol/L Chloride 103 (100-110) mmol/L Carbon Dioxide 29 (21-32) mmol/L BUN 12 (7-18) mg/dL Creatinine 0.9 (0.55-1.02) mg/dL Est Cr Clr Drug Dosing TNP Estimated GFR (MDRD) > 60 (>60) BUN/Creatinine Ratio 13.3 (9-20) Glucose 193 H (80-116) mg/dL Calcium 9.2 (8.6-10.2) mg/dL Total Bilirubin 0.3 (0.1-1.3) mg/dL AST 53 H D (5-25) IU/L ALT 87 H D (12-36) U/L Alkaline Phosphatase 89 (56-112) IU/L Total Protein 7.1 (6.0-8.0) g/dL Albumin 3.0 L (3.2-4.6) g/dL Globulin 4.1 g/dL Albumin/Globulin Ratio 0.7 Amylase 24 L (25-115) U/L Lipase 127 (73-393) U/L Meds: Medications Discontinued Medications Generic Name Dose Route Start Last Admin Trade Name Freq PRN Reason Stop Dose Admin Sodium Chloride 1,000 mls @ 999 mls/hr 12/02/19 17:15 12/02/19 17:18 Normal Saline IV 999 mls/hr ASDIRECTED JONATHAN Administration Magnesium Citrate 296 ml 12/02/19 16:59 12/02/19 17:11 Citrate Of Magnesia PO 12/02/19 17:00 296 ml ONETIME ONE Administration Morphine Sulfate 2 mg 12/02/19 18:21 12/02/19 18:28 Morphine IVPUSH 12/02/19 18:22 2 mg ONETIME ONE Administration Ondansetron HCl 4 mg 12/02/19 16:59 12/02/19 17:11 Zofran IVPUSH 12/02/19 17:00 4 mg ONETIME ONE Administration Ondansetron HCl 4 mg 12/02/19 19:52 12/02/19 19:58 Zofran IVPUSH 12/02/19 19:53 4 mg ONETIME ONE Administration Polyethylene Glycol 34 gm 12/02/19 16:57 12/02/19 17:11 Miralax PO 12/02/19 16:58 34 gm ONETIME ONE Administration Senna/Docusate Sodium 2 tab 12/02/19 16:57 12/02/19 17:11 Senna Plus PO 12/02/19 16:58 2 tab ONETIME ONE Administration Departure - Departure Time of Disposition: 20:30 Disposition: Home, Self-Care 01 Condition: Good Clinical Impression: Chronic low back pain Constipation Qualifiers: Constipation type: unspecified constipation type Qualified Code(s): K59.00 - Constipation, unspecified - Discharge Information Prescriptions: KCl/Na Sulf,Bicarb,Cl/PEG 3351 [GoLytely] 4,000 ml PO ONETIME #1 bottle Ondansetron [Zofran ODT] 4 mg PO Q4H PRN #7 tab.dis PRN Reason: Nausea Instructions: Chronic Constipation Referrals: Shannon Hernandez PA-C [Ordering Only Provider] - Forms: ED Department Discharge Additional Instructions: please read discharge instructions on chronic comstipayions increase oral fluids zofran ODT 4 mg every 4 hours as needed for nausea take golytely as directed Follow up as needed Sepsis Event Note (ED) - Focused Exam Vital Signs: Vital Signs Temp Pulse Resp BP Pulse Ox 12/02/19 16:25 36.2 C 93 18 163/71 H 99 - My Orders Last 24 Hours: My Active Orders 12/02/19 19:10 Abdomen Pelvis wo Cont [CT] Stat - Assessment/Plan Last 24 Hours: My Active Orders 12/02/19 19:10 Abdomen Pelvis wo Cont [CT] Stat
[2019-12-02 20:15] VITALS: BP 163/71; PULSE 93
== END 2019-12-02 21:40 | disposition home or self-care (01) ==
LOC: FB.ED 16:25
DX: K59.00 Constipation, unspecified (principal); G89.29 Other chronic pain; M54.5 Low back pain; I10 Essential (primary) hypertension; E11.9 Type 2 diabetes mellitus without complications; J44.9 Chronic obstructive pulmonary disease, unspecified; M19.90 Unspecified osteoarthritis, unspecified site; F41.9 Anxiety disorder, unspecified; F32.9 Major depressive disorder, single episode, unspecified; E03.9 Hypothyroidism, unspecified; E66.9 Obesity, unspecified; Z68.38 Body mass index [BMI] 38.0-38.9, adult; Z90.49 Acquired absence of other specified parts of digestive tract; Z88.8 Allergy status to other drugs, medicaments and biological substances; Z88.1 Allergy status to other antibiotic agents; Z88.2 Allergy status to sulfonamides; Z91.048 Other nonmedicinal substance allergy status; Z91.041 Radiographic dye allergy status; Z79.899 Other long term (current) drug therapy; Z79.4 Long term (current) use of insulin; Z79.82 Long term (current) use of aspirin
CPT/HCPCS: 36415; 74176; 80053; 82150; 83690; 85025; 96361; 96374; 96375; 96376; 99283; 99284; A9270; J2270; J2405; J7030

== ENCOUNTER 2020-04-08 17:10 | Emergency (ER) | payer MEDICARE, MEDICAID ==
[2020-04-08] MEDS ORDERED: Sodium Chloride 0.9% 10 ML Syringe FLUSH PRN (17:40)
--- NOTE | 2020-04-08 18:29 | EDM.PDOC ---
ED HPI GENERAL MEDICAL PROBLEM - General Chief Complaint: General Stated Complaint: FALL Time Seen by Provider: 04/08/20 17:50 Source of Information: Reports: Patient History Limitations: Reports: No Limitations - History of Present Illness INITIAL COMMENTS - FREE TEXT/NARRATIVE: Patient presented to the ED because she tripped and fell and hit her head on her walker. She c/o headache,denies any LOC after the fall. - Related Data Allergies Allergy/AdvReac Type Severity Reaction Status Date / Time atenolol [From Tenoretic 50] Allergy Rash Verified 12/02/19 23:27 chlorthalidone Allergy Rash Verified 12/02/19 23:27 [From Tenoretic 50] ciprofloxacin [From Cipro] Allergy Cannot Verified 12/02/19 23:27 Remember ciprofloxacin HCl Allergy Cannot Verified 12/02/19 23:27 [From Cipro] Remember diclofenac sodium Allergy Cannot Verified 12/02/19 23:27 [From Voltaren] Remember ibuprofen [From Advil] Allergy Cannot Verified 12/02/19 23:27 Remember iodine Allergy Hives Verified 12/02/19 23:27 propranolol HCl Allergy Swelling Verified 12/02/19 23:27 [From Inderal LA] Sulfa (Sulfonamide Allergy Rash Verified 12/02/19 23:27 Antibiotics) verapamil [Verapamil] Allergy Hives Verified 12/02/19 23:27 IVP DYES Allergy Hives Uncoded 12/02/19 23:27 METAL Allergy Rash Uncoded 12/02/19 23:27 Home Meds: Home Meds FLUoxetine [PROzac] 40 mg PO DAILY 07/26/13 [History] Levothyroxine [Synthroid] 100 mcg PO ACBRK 07/26/13 [History] Topiramate [Topamax] 400 mg PO BEDTIME 07/26/13 [History] modafiniL [Provigil] 200 mg PO DAILY PRN 07/26/13 [History] Potassium Chloride 20 meq PO BID 05/31/15 [History] rOPINIRole [Requip] 0.5 mg PO ASDIRECTED PRN 05/31/15 [History] SUMAtriptan succinate [Imitrex] 100 mg PO ASDIRECTED PRN 10/31/15 [History] Ascorbate Calcium [Vitamin C] 500 mg PO DAILY 04/16/17 [History] Aspirin [Halfprin] 81 mg PO DAILY 04/16/17 [History] Cranberry Fruit Extract [Cranberry] 500 mg PO DAILY 04/16/17 [History] Cyanocobalamin (Vitamin B-12) [Vitamin B-12] 1,000 mcg PO DAILY 04/16/17 [History] Ferrous Sulfate [Iron] 325 mg PO TID 04/16/17 [History] Multivitamin with Minerals [Multiple Vitamin] 1 tab PO DAILY 04/16/17 [History] Omeprazole 20 mg PO DAILY 04/16/17 [History] Promethazine [Phenergan] 25 mg PO Q4H PRN 04/16/17 [History] metFORMIN [Glucophage] 1,000 mg PO BIDM 01/14/19 [History] Cyclobenzaprine HCl 10 mg PO TID 02/07/19 [History] .Vitamin D High Potency 1,000 units PO DAILY 12/02/19 [History] Albuterol [Ventolin HFA] 2 puff INH Q4HR PRN 12/02/19 [History] Albuterol/Ipratropium [DuoNeb 3.0-0.5 MG/3 ML] 3 ml INH Q6H 12/02/19 [History] Brimonidine [Alphagan 0.2% Ophth Soln] 1 dose .XX ASDIRECTED 12/02/19 [History] Fluticasone Propionate [Flovent HFA 110 MCG] 2 puff INH BID 12/02/19 [History] Ibuprofen 200 mg PO Q4H PRN 12/02/19 [History] Insulin Glarg,Human.Rec.Analog [Lantus Solostar] 56 - 60 unit SUBCUT BEDTIME 12/02/19 [History] KCl/Na Sulf,Bicarb,Cl/PEG 3351 [GoLytely] 4,000 ml PO ONETIME #1 bottle 12/02/19 [Rx] Losartan [Cozaar] 50 - 100 mg PO DAILY 12/02/19 [History] Magnesium 400 mg PO DAILY 12/02/19 [History] Meclizine [Antivert] 25 mg PO ASDIRECTED PRN 12/02/19 [History] Mupirocin Oint [Bactroban Oint] 22 gm LISA BID 12/02/19 [History] Olodaterol HCl [Striverdi Respimat] 2 ampule IH DAILY 12/02/19 [History] Ondansetron [Zofran ODT] 4 mg PO Q4H PRN #7 tab.dis 12/02/19 [Rx] Pregabalin [Lyrica] 300 mg PO BID 12/02/19 [History] Tiotropium [place] [Spiriva Respimat] 2 puff INH DAILY 12/02/19 [History] Triamcinolone Acetonide [Kenalog 0.1% Crm] 1 applic TOP BID PRN 12/02/19 [History] clindamycin HCL [Cleocin] 600 mg PO ASDIRECTED PRN 12/02/19 [History] fluorouraciL [Efudex 5% Cream] 40 gm .XX ASDIRECTED 12/02/19 [History] Past Medical History HEENT History: Reports: Cataract, Impaired Vision, Sinusitis Other HEENT History: wears glasses Cardiovascular History: Reports: Hypertension Respiratory History: Reports: Asthma, COPD, Sleep Apnea Gastrointestinal History: Reports: Other (See Below) Other Gastrointestinal History: had 4 inches of colon removed for Crohns in 2011 Genitourinary History: Reports: Urinary Incontinence 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: Musculoskeletal History: Reports: Arthritis, Fibromyalgia, Osteoarthritis, Other (See Below) Other Musculoskeletal History: bone spurs Neurological History: Reports: Migraines Psychiatric History: Reports: Anxiety, Depression Endocrine/Metabolic History: Reports: Diabetes, Type II, Hypothyroidism, Obesity/BMI 30+ Hematologic History: Reports: Anemia Immunologic History: Reports: Other (See Below) Other Immunologic History: torrey - Infectious Disease History Infectious Disease History: Reports: Chicken Pox, MRSA, Mumps, Shingles - Past Surgical History HEENT Surgical History: Reports: Naso-Sinus Surgery GI Surgical History: Reports: Appendectomy, Cholecystectomy, Colon, Colonoscopy, Hernia Repair/Other Endocrine Surgical History: Reports: Other (See Below) Musculoskeletal Surgical History: Reports: Joint Replacement Social & Family History - Family History Family Medical History: Noncontributory HEENT: Reports: None Cardiac: Reports: None Respiratory: Reports: COPD Other Respiratory Family Hisory: father GI: Reports: Cirrhosis Other GI Family History: mother : Reports: None OBGYN: Reports: None Musculoskeletal: Reports: None Endocrine/Metabolic: Reports: None Hematologic: Reports: None Immunologic: Reports: None Dermatologic: Reports: None Oncologic: Reports: None - Caffeine Use Caffeine Use: Reports: None ED ROS GENERAL - Review of Systems Review Of Systems: See Below Constitutional: Reports: No Symptoms HEENT: Reports: No Symptoms Respiratory: Reports: No Symptoms Cardiovascular: Reports: No Symptoms Endocrine: Reports: Polyuria GI/Abdominal: Reports: No Symptoms : Reports: No Symptoms Musculoskeletal: Reports: No Symptoms Skin: Reports: No Symptoms Neurological: Reports: Headache Psychiatric: Reports: No Symptoms Hematologic/Lymphatic: Reports: No Symptoms ED EXAM, GENERAL - Physical Exam Exam: See Below Exam Limited By: No Limitations General Appearance: Alert, No Apparent Distress Eye Exam: Bilateral Eye: Proptosis Ears: Normal External Exam, Normal Canal Nose: Normal Inspection, Normal Mucosa Throat/Mouth: Normal Inspection, Normal Lips, Normal Teeth Head: Atraumatic, Normocephalic Neck: Normal Inspection, Supple, Non-Tender, Full Range of Motion Respiratory/Chest: No Respiratory Distress, Lungs Clear, Normal Breath Sounds Cardiovascular: Normal Peripheral Pulses, Regular Rate, Rhythm, No Edema, No Gallop GI/Abdominal: Normal Bowel Sounds, Soft, Non-Tender, No Organomegaly Back Exam: Normal Inspection, Full Range of Motion Extremities: Normal Inspection, Normal Range of Motion Neurological: Alert, Oriented, CN II-XII Intact, Normal Cognition, Normal Gait Course - Vital Signs Text/Narrative:: Head CT-negative - Orders/Labs/Meds Orders: Active Orders 24 hr Category Date Time Status Chest 1V Frontal [CR] Stat Exams 04/08/20 17:41 Taken Head wo Cont [CT] Stat Exams 04/08/20 17:48 Taken Sodium Chloride 0.9% [Saline Flush] Med 04/08/20 17:40 Active 10 ml FLUSH ASDIRECTED PRN Saline Lock Insert [OM.PC] Routine Oth 04/08/20 17:40 Ordered Medication Orders Sodium Chloride (Saline Flush) 10 ml FLUSH ASDIRECTED PRN PRN Reason: Keep Vein Open Labs: Laboratory Tests 04/08/20 04/08/20 04/08/20 Range/Units 17:55 17:55 17:55 WBC 8.8 (4.5-12.0) X10-3/uL RBC 3.43 (3.23-5.20) x10(6)uL Hgb 10.9 L (11.5-15.5) g/dL Hct 32.6 (30.0-51.3) % MCV 95.2 (80-96) fL MCH 31.9 (27.7-33.6) pg MCHC 33.5 (32.2-35.4) g/dL RDW 15.2 (11.5-15.5) % Plt Count 148 (125-369) X10(3)uL MPV 8.5 (7.4-10.4) fL Neut % (Auto) 67.3 (46-82) % Lymph % (Auto) 26.7 (13-37) % [place] % (Auto) 4.5 (4-12) % Eos % (Auto) 1 (1.0-5.0) % Baso % (Auto) 0 (0-2) % Neut # (Auto) 6.0 (1.6-8.3) # Lymph # (Auto) 2.3 (0.6-5.0) # [place] # (Auto) 0.4 (0.0-1.3) # Eos # (Auto) 0.1 (0.0-0.8) # Baso # (Auto) 0.0 (0.0-0.2) # PT 11.3 H (9.0-11.1) sec INR 1.05 (1.00-1.24) APTT 26.9 (24.4-33.2) SECONDS Sodium 141 (135-145) mmol/L Potassium 3.6 (3.5-5.3) mmol/L Chloride 103 (100-110) mmol/L Carbon Dioxide 28 (21-32) mmol/L BUN 14 (7-18) mg/dL Creatinine 0.7 (0.55-1.02) mg/dL Est Cr Clr Drug Dosing TNP Estimated GFR (MDRD) > 60 (>60) BUN/Creatinine Ratio 20.0 (9-20) Glucose 125 H (80-116) mg/dL Lactic Acid (0.4-2.0) mmol/L Calcium 9.3 (8.6-10.2) mg/dL Total Bilirubin 0.2 (0.1-1.3) mg/dL AST 40 H D (5-25) IU/L ALT 66 H D (12-36) U/L Alkaline Phosphatase 48 L (56-112) IU/L Troponin I (4.0-60.3) pg/mL Total Protein 6.5 (6.0-8.0) g/dL Albumin 2.9 L (3.2-4.6) g/dL Globulin 3.6 g/dL Albumin/Globulin Ratio 0.8 04/08/20 04/08/20 Range/Units 17:55 17:55 WBC (4.5-12.0) X10-3/uL RBC (3.23-5.20) x10(6)uL Hgb (11.5-15.5) g/dL Hct (30.0-51.3) % MCV (80-96) fL MCH (27.7-33.6) pg MCHC (32.2-35.4) g/dL RDW (11.5-15.5) % Plt Count (125-369) X10(3)uL MPV (7.4-10.4) fL Neut % (Auto) (46-82) % Lymph % (Auto) (13-37) % [place] % (Auto) (4-12) % Eos % (Auto) (1.0-5.0) % Baso % (Auto) (0-2) % Neut # (Auto) (1.6-8.3) # Lymph # (Auto) (0.6-5.0) # [place] # (Auto) (0.0-1.3) # Eos # (Auto) (0.0-0.8) # Baso # (Auto) (0.0-0.2) # PT (9.0-11.1) sec INR (1.00-1.24) APTT (24.4-33.2) SECONDS Sodium (135-145) mmol/L Potassium (3.5-5.3) mmol/L Chloride (100-110) mmol/L Carbon Dioxide (21-32) mmol/L BUN (7-18) mg/dL Creatinine (0.55-1.02) mg/dL Est Cr Clr Drug Dosing Estimated GFR (MDRD) (>60) BUN/Creatinine Ratio (9-20) Glucose (80-116) mg/dL Lactic Acid 1.1 (0.4-2.0) mmol/L Calcium (8.6-10.2) mg/dL Total Bilirubin (0.1-1.3) mg/dL AST (5-25) IU/L ALT (12-36) U/L Alkaline Phosphatase (56-112) IU/L Troponin I 8.0 (4.0-60.3) pg/mL Total Protein (6.0-8.0) g/dL Albumin (3.2-4.6) g/dL Globulin g/dL Albumin/Globulin Ratio Meds: Medications Generic Name Dose Route Start Last Admin Trade Name Freq PRN Reason Stop Dose Admin Sodium Chloride 10 ml 04/08/20 17:40 Saline Flush FLUSH ASDIRECTED PRN Keep Vein Open Departure - Departure Time of Disposition: 18:30 Disposition: Home, Self-Care 01 Condition: Good Clinical Impression: Head injury - Discharge Information Instructions: Head Injury, Adult, [id number] Referrals: PCP,None [Ordering Only Provider] - Forms: ED Department Discharge Additional Instructions: Please read discharge instructions on head injury Take tylenol 1000 mg every 8 hours as needed for headache Follow up as needed - My Orders Last 24 Hours: My Active Orders 04/08/20 17:40 Sodium Chloride 0.9% [Saline Flush] 10 ml FLUSH ASDIRECTED PRN Saline Lock Insert [OM.PC] Routine 04/08/20 17:41 Chest 1V Frontal [CR] Stat 04/08/20 17:48 Head wo Cont [CT] Stat - Assessment/Plan Last 24 Hours: My Active Orders 04/08/20 17:40 Sodium Chloride 0.9% [Saline Flush] 10 ml FLUSH ASDIRECTED PRN Saline Lock Insert [OM.PC] Routine 04/08/20 17:41 Chest 1V Frontal [CR] Stat 04/08/20 17:48 Head wo Cont [CT] Stat
[2020-04-08 20:22] VITALS: BP 161/67; PULSE 97
--- NOTE | 2020-04-08 20:42 | CT ---
CT HEAD WITHOUT CONTRAST INDICATION: Fall, head injury--hit left cheek on walker, now has headache all over. Spiral 3.75 mm axial sections were obtained through the brain with axial, sagittal, and coronal reconstructions 04/08/2020 and compared with 07/08/2017. Total exam DLP was 1348.07 mGy-cm. No shift of midline structures or ventricular abnormalities were identified. No abnormal areas of density were seen. No bleeding site or hematoma was noted. There are some moderate calcifications in the internal carotid arteries with some minimal calcification suggested in the left vertebral artery and very minimally in the right vertebral artery. Thickening of the lining of the right maxillary antrum is noted. The air cells of the ethmoid area have been surgerized with removal of ethmoidal air cells and the sphenoidal air cells. Some thickening of the lining extends posteriorly to the sphenoidal area and superiorly into the frontal air cells on the left and minimally on the right. No definite sinusitis is identified. However, with the thickening of the lining seen in the left frontal area and the right maxillary area, a minimal degree of allergic sinusitis would be a consideration. Portions of the maxillary antral medial curiel have been removed since the previous study. No definite fracture site was identified. The cranium appears to be intact. The mastoid air cells appear to be fairly well aerated. IMPRESSION: 1. Findings suggest postsurgical changes in the paranasal sinuses with some thickening of linings which may represent postsurgical residual changes; although, allergic sinusitis would be a consideration. 2. No acute intracranial abnormalities identified. 3. Arterial calcifications are noted compatible with cerebrovascular disease. Report was called to at 1823 hours. [facility]
--- NOTE | 2020-04-08 20:45 | CR ---
CHEST ONE VIEW INDICATION: Dyspnea. A single PA view of the chest was obtained 04/08/2020 and compared with 04/09/2019. The heart most likely is within normal limits in size. The aorta is calcified in the arch area. A definite active infiltrate or effusion was not identified. Evidence of exogenous obesity is noted. IMPRESSION: 1. No definite acute process. It is difficult to exclude a mild degree of cardiomegaly with the image obtained--probably the appearance is secondary to prominent epicardial fat pads. 2. ASD aorta. 3. Exogenous obesity. MTDD
== END 2020-04-08 18:40 | disposition home or self-care (01) ==
LOC: FB.ED 17:10
DX: S09.90XA Unspecified injury of head, initial encounter (principal); I10 Essential (primary) hypertension; J44.9 Chronic obstructive pulmonary disease, unspecified; M19.90 Unspecified osteoarthritis, unspecified site; E03.9 Hypothyroidism, unspecified; E66.9 Obesity, unspecified; F41.9 Anxiety disorder, unspecified; F32.9 Major depressive disorder, single episode, unspecified; G43.909 Migraine, unspecified, not intractable, without status migrainosus; E11.9 Type 2 diabetes mellitus without complications; Z88.8 Allergy status to other drugs, medicaments and biological substances; Z88.1 Allergy status to other antibiotic agents; Z88.6 Allergy status to analgesic agent; Z91.048 Other nonmedicinal substance allergy status; Z88.2 Allergy status to sulfonamides; Z91.041 Radiographic dye allergy status; Z79.82 Long term (current) use of aspirin; Z79.899 Other long term (current) drug therapy; Z79.4 Long term (current) use of insulin; W01.198A Fall on same level from slipping, tripping and stumbling with subsequent striking against other object, initial encounter
CPT/HCPCS: 36415; 70450; 71045; 80053; 83605; 84484; 85025; 85610; 85730; 99284-25

== ENCOUNTER 2020-07-15 18:02 | Emergency (ER) | payer MEDICAID, MEDICARE ==
--- NOTE | 2020-07-15 18:10 | EDM.PDOC ---
ED HPI GENERAL MEDICAL PROBLEM - General Stated Complaint: RESP PROBLEMS Time Seen by Provider: 07/15/20 18:02 - History of Present Illness INITIAL COMMENTS - FREE TEXT/NARRATIVE: d/w EMS and RN, orders placed, signed out to Dr Harmon at 7p at change of shift, pt seen and examined by Dr Harmon - Related Data Allergies Allergy/AdvReac Type Severity Reaction Status Date / Time atenolol [From Tenoretic 50] Allergy Rash Verified 07/15/20 19:34 chlorthalidone Allergy Rash Verified 07/15/20 19:34 [From Tenoretic 50] ciprofloxacin [From Cipro] Allergy Cannot Verified 07/15/20 19:34 Remember ciprofloxacin HCl Allergy Cannot Verified 07/15/20 19:34 [From Cipro] Remember diclofenac sodium Allergy Cannot Verified 07/15/20 19:34 [From Voltaren] Remember ibuprofen [From Advil] Allergy Cannot Verified 07/15/20 19:34 Remember iodine Allergy Hives Verified 07/15/20 19:34 propranolol HCl Allergy Swelling Verified 07/15/20 19:34 [From Inderal LA] Sulfa (Sulfonamide Allergy Rash Verified 07/15/20 19:34 Antibiotics) verapamil [Verapamil] Allergy Hives Verified 07/15/20 19:34 IVP DYES Allergy Hives Uncoded 07/15/20 19:34 METAL Allergy Rash Uncoded 07/15/20 19:34 Home Meds: Home Meds FLUoxetine [PROzac] 40 mg PO DAILY 07/26/13 [History] Levothyroxine [Synthroid] 100 mcg PO ACBRK 07/26/13 [History] Topiramate [Topamax] 400 mg PO BEDTIME 07/26/13 [History] modafiniL [Provigil] 200 mg PO DAILY PRN 07/26/13 [History] Potassium Chloride 20 meq PO BID 05/31/15 [History] rOPINIRole [Requip] 0.5 mg PO ASDIRECTED PRN 05/31/15 [History] SUMAtriptan succinate [Imitrex] 100 mg PO ASDIRECTED PRN 10/31/15 [History] Ascorbate Calcium [Vitamin C] 500 mg PO DAILY 04/16/17 [History] Aspirin [Halfprin] 81 mg PO DAILY 04/16/17 [History] Cranberry Fruit Extract [Cranberry] 500 mg PO DAILY 04/16/17 [History] Cyanocobalamin (Vitamin B-12) [Vitamin B-12] 1,000 mcg PO DAILY 04/16/17 [History] Ferrous Sulfate [Iron] 325 mg PO TID 04/16/17 [History] Multivitamin with Minerals [Multiple Vitamin] 1 tab PO DAILY 04/16/17 [History] Omeprazole 20 mg PO DAILY 04/16/17 [History] Promethazine [Phenergan] 25 mg PO Q4H PRN 04/16/17 [History] metFORMIN [Glucophage] 1,000 mg PO BIDM 01/14/19 [History] Cyclobenzaprine HCl 10 mg PO TID 02/07/19 [History] .Vitamin D High Potency 1,000 units PO DAILY 12/02/19 [History] Albuterol [Ventolin HFA] 2 puff INH Q4HR PRN 12/02/19 [History] Albuterol/Ipratropium [DuoNeb 3.0-0.5 MG/3 ML] 3 ml INH Q6H 12/02/19 [History] Brimonidine [Alphagan 0.2% Ophth Soln] 1 dose .XX ASDIRECTED 12/02/19 [History] Fluticasone Propionate [Flovent HFA 110 MCG] 2 puff INH BID 12/02/19 [History] Ibuprofen 200 mg PO Q4H PRN 12/02/19 [History] Insulin Glarg,Human.Rec.Analog [Lantus Solostar] 56 - 60 unit SUBCUT BEDTIME 12/02/19 [History] KCl/Na Sulf,Bicarb,Cl/PEG 3351 [GoLytely] 4,000 ml PO ONETIME #1 bottle 12/02/19 [Rx] Losartan [Cozaar] 50 - 100 mg PO DAILY 12/02/19 [History] Magnesium 400 mg PO DAILY 12/02/19 [History] Meclizine [Antivert] 25 mg PO ASDIRECTED PRN 12/02/19 [History] Mupirocin Oint [Bactroban Oint] 22 gm LISA BID 12/02/19 [History] Olodaterol HCl [Striverdi Respimat] 2 ampule IH DAILY 12/02/19 [History] Ondansetron [Zofran ODT] 4 mg PO Q4H PRN #7 tab.dis 12/02/19 [Rx] Pregabalin [Lyrica] 300 mg PO BID 12/02/19 [History] Tiotropium [place] [Spiriva Respimat] 2 puff INH DAILY 12/02/19 [History] Triamcinolone Acetonide [Kenalog 0.1% Crm] 1 applic TOP BID PRN 12/02/19 [History] clindamycin HCL [Cleocin] 600 mg PO ASDIRECTED PRN 12/02/19 [History] fluorouraciL [Efudex 5% Cream] 40 gm .XX ASDIRECTED 12/02/19 [History] Past Medical History HEENT History: Reports: Cataract, Impaired Vision, Sinusitis Other HEENT History: wears glasses Cardiovascular History: Reports: Hypertension Respiratory History: Reports: Asthma, COPD, Sleep Apnea Gastrointestinal History: Reports: Other (See Below) Other Gastrointestinal History: had 4 inches of colon removed for Crohns in 2011 Genitourinary History: Reports: Urinary Incontinence 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: Musculoskeletal History: Reports: Arthritis, Fibromyalgia, Osteoarthritis, Other (See Below) Other Musculoskeletal History: bone spurs Neurological History: Reports: Migraines Psychiatric History: Reports: Anxiety, Depression Endocrine/Metabolic History: Reports: Diabetes, Type II, Hypothyroidism, Obesity/BMI 30+ Hematologic History: Reports: Anemia Immunologic History: Reports: Other (See Below) Other Immunologic History: torrey - Infectious Disease History Infectious Disease History: Reports: Chicken Pox, MRSA, Mumps, Shingles - Past Surgical History HEENT Surgical History: Reports: Naso-Sinus Surgery GI Surgical History: Reports: Appendectomy, Cholecystectomy, Colon, Colonoscopy, Hernia Repair/Other Endocrine Surgical History: Reports: Other (See Below) Musculoskeletal Surgical History: Reports: Joint Replacement Social & Family History - Family History Family Medical History: No Pertinent Family History HEENT: Reports: None Cardiac: Reports: None Respiratory: Reports: COPD Other Respiratory Family Hisory: father GI: Reports: Cirrhosis Other GI Family History: mother : Reports: None OBGYN: Reports: None Musculoskeletal: Reports: None Endocrine/Metabolic: Reports: None Hematologic: Reports: None Immunologic: Reports: None Dermatologic: Reports: None Oncologic: Reports: None - Caffeine Use Caffeine Use: Reports: None ED ROS GENERAL - Review of Systems Review Of Systems: Unable To Obtain (obtained by Dr Harmon) Reason Not Obtained: completed by Dr Harmon ED EXAM, GENERAL - Physical Exam Exam: See Below (done by Dr Harmon) Course - Vital Signs Last Recorded V/S: Last Vital Signs Temp 36.3 C 07/15/20 21:00 Pulse 93 07/15/20 21:00 Resp 17 07/15/20 21:00 BP 150/95 H 07/15/20 21:00 Pulse Ox 96 07/15/20 21:00 - Orders/Labs/Meds Orders: Active Orders 24 hr Category Date Time Status CULTURE BLOOD [BC] Urgent Lab 07/15/20 18:15 Received CULTURE BLOOD [BC] Urgent Lab 07/15/20 18:20 Received CULTURE URINE [RM] Stat Lab 07/15/20 19:52 Received Blood Culture x2 Reflex Set [OM.PC] Urgent Oth 07/15/20 18:08 Ordered EKG 12 Lead [EK] Routine Ther 07/15/20 18:06 Ordered Labs: Laboratory Tests 07/15/20 07/15/20 07/15/20 Range/Units 18:15 18:15 18:15 WBC 5.3 (3.0-10.3) x10-3/uL RBC 3.50 L (3.60-5.20) x10(6)uL Hgb 9.8 L (11.4-15.5) g/dL Hct 31.4 L (34.2-48.2) % MCV 89.7 (76.7-100.5) fL MCH 28.1 (23.9-33.9) pg MCHC 31.3 L (31.9-34.8) g/dL RDW 15.8 (12.3-16.5) % Plt Count 136 L (151-488) x10(3)uL MPV 8.9 (7.1-12.4) fL Neut % (Auto) 69.2 (30.8-76.2) % Lymph % (Auto) 23.1 (18.4-52.1) % Kidder % (Auto) 5.9 (4.4-15.7) % Eos % (Auto) 1.4 (0.6-8.1) % Baso % (Auto) 0.4 (0.2-1.5) % Neut # (Auto) 3.7 (1.5-6.3) x10-3/uL Lymph # (Auto) 1.2 (1.0-4.4) x10-3/uL Kidder # (Auto) 0.3 (0.3-1.0) x10-3/uL Eos # (Auto) 0.1 (0.0-0.8) x10-3/uL Baso # (Auto) 0.0 (0.0-0.1) x10-3/uL POC VBG pH (7.32-7.43) pH Units POC VBG pCO2 (41-51) mmHg POC VBG HCO3 (21-29) mmol/L VBG Base Excess (-2-3) mmol/L O2 Delivery Device Sodium 142 (135-145) mmol/L Potassium 3.7 (3.5-5.3) mmol/L Chloride 105 (100-110) mmol/L Carbon Dioxide 26 (21-32) mmol/L BUN 17 (7-18) mg/dL Creatinine 1.0 (0.55-1.02) mg/dL Est Cr Clr Drug Dosing TNP Estimated GFR (MDRD) 56 L (>60) BUN/Creatinine Ratio 17.0 (9-20) Glucose 129 H (80-116) mg/dL Lactic Acid (0.4-2.0) mmol/L Calcium 8.7 (8.6-10.2) mg/dL Total Bilirubin 0.2 (0.1-1.3) mg/dL AST 33 H D (5-25) IU/L ALT 39 H D (12-36) U/L Alkaline Phosphatase 66 (56-112) IU/L Troponin I 7.4 (4.0-60.3) pg/mL C-Reactive Protein (0.5-0.9) mg/dL Total Protein 6.9 (6.0-8.0) g/dL Albumin 3.1 L (3.2-4.6) g/dL Globulin 3.8 g/dL Albumin/Globulin Ratio 0.8 Urine Color (YELLOW) Urine Appearance (CLEAR) Urine pH (5.0-6.5) Ur Specific Darwin (1.010-1.025) Urine Protein (NEGATIVE) mg/dL Urine Glucose (UA) (NORMAL) mg/dL Urine Ketones (NEGATIVE) mg/dL Urine Occult Blood (NEGATIVE) Urine Nitrite (NEGATIVE) Urine Bilirubin (NEGATIVE) Urine Urobilinogen (NEGATIVE) mg/dL Ur Leukocyte Esterase (NEGATIVE) Urine RBC (0-5) Urine WBC (0-5) Ur Squamous Epith Cells (NS,R,O) Urine Bacteria (NS) 07/15/20 07/15/20 07/15/20 Range/Units 18:15 18:15 18:15 WBC (3.0-10.3) x10-3/uL RBC (3.60-5.20) x10(6)uL Hgb (11.4-15.5) g/dL Hct (34.2-48.2) % MCV (76.7-100.5) fL MCH (23.9-33.9) pg MCHC (31.9-34.8) g/dL RDW (12.3-16.5) % Plt Count (151-488) x10(3)uL MPV (7.1-12.4) fL Neut % (Auto) (30.8-76.2) % Lymph % (Auto) (18.4-52.1) % Kidder % (Auto) (4.4-15.7) % Eos % (Auto) (0.6-8.1) % Baso % (Auto) (0.2-1.5) % Neut # (Auto) (1.5-6.3) x10-3/uL Lymph # (Auto) (1.0-4.4) x10-3/uL Kidder # (Auto) (0.3-1.0) x10-3/uL Eos # (Auto) (0.0-0.8) x10-3/uL Baso # (Auto) (0.0-0.1) x10-3/uL POC VBG pH 7.43 (7.32-7.43) pH Units POC VBG pCO2 36 L (41-51) mmHg POC VBG HCO3 24 (21-29) mmol/L VBG Base Excess -1 (-2-3) mmol/L O2 Delivery Device Nasal cannula Sodium (135-145) mmol/L Potassium (3.5-5.3) mmol/L Chloride (100-110) mmol/L Carbon Dioxide (21-32) mmol/L BUN (7-18) mg/dL Creatinine (0.55-1.02) mg/dL Est Cr Clr Drug Dosing Estimated GFR (MDRD) (>60) BUN/Creatinine Ratio (9-20) Glucose (80-116) mg/dL Lactic Acid 2.2 H* (0.4-2.0) mmol/L Calcium (8.6-10.2) mg/dL Total Bilirubin (0.1-1.3) mg/dL AST (5-25) IU/L ALT (12-36) U/L Alkaline Phosphatase (56-112) IU/L Troponin I (4.0-60.3) pg/mL C-Reactive Protein 3.5 H* (0.5-0.9) mg/dL Total Protein (6.0-8.0) g/dL Albumin (3.2-4.6) g/dL Globulin g/dL Albumin/Globulin Ratio Urine Color (YELLOW) Urine Appearance (CLEAR) Urine pH (5.0-6.5) Ur Specific [place] (1.010-1.025) Urine Protein (NEGATIVE) mg/dL Urine Glucose (UA) (NORMAL) mg/dL Urine Ketones (NEGATIVE) mg/dL Urine Occult Blood (NEGATIVE) Urine Nitrite (NEGATIVE) Urine Bilirubin (NEGATIVE) Urine Urobilinogen (NEGATIVE) mg/dL Ur Leukocyte Esterase (NEGATIVE) Urine RBC (0-5) Urine WBC (0-5) Ur Squamous Epith Cells (NS,R,O) Urine Bacteria (NS) 07/15/20 Range/Units 19:52 WBC (3.0-10.3) x10-3/uL RBC (3.60-5.20) x10(6)uL Hgb (11.4-15.5) g/dL Hct (34.2-48.2) % MCV (76.7-100.5) fL MCH (23.9-33.9) pg MCHC (31.9-34.8) g/dL RDW (12.3-16.5) % Plt Count (151-488) x10(3)uL MPV (7.1-12.4) fL Neut % (Auto) (30.8-76.2) % Lymph % (Auto) (18.4-52.1) % Kidder % (Auto) (4.4-15.7) % Eos % (Auto) (0.6-8.1) % Baso % (Auto) (0.2-1.5) % Neut # (Auto) (1.5-6.3) x10-3/uL Lymph # (Auto) (1.0-4.4) x10-3/uL [place] # (Auto) (0.3-1.0) x10-3/uL Eos # (Auto) (0.0-0.8) x10-3/uL Baso # (Auto) (0.0-0.1) x10-3/uL POC VBG pH (7.32-7.43) pH Units POC VBG pCO2 (41-51) mmHg POC VBG HCO3 (21-29) mmol/L VBG Base Excess (-2-3) mmol/L O2 Delivery Device Sodium (135-145) mmol/L Potassium (3.5-5.3) mmol/L Chloride (100-110) mmol/L Carbon Dioxide (21-32) mmol/L BUN (7-18) mg/dL Creatinine (0.55-1.02) mg/dL Est Cr Clr Drug Dosing Estimated GFR (MDRD) (>60) BUN/Creatinine Ratio (9-20) Glucose (80-116) mg/dL Lactic Acid (0.4-2.0) mmol/L Calcium (8.6-10.2) mg/dL Total Bilirubin (0.1-1.3) mg/dL AST (5-25) IU/L ALT (12-36) U/L Alkaline Phosphatase (56-112) IU/L Troponin I (4.0-60.3) pg/mL C-Reactive Protein (0.5-0.9) mg/dL Total Protein (6.0-8.0) g/dL Albumin (3.2-4.6) g/dL Globulin g/dL Albumin/Globulin Ratio Urine Color Yellow (YELLOW) Urine Appearance Slightly cloudy (CLEAR) Urine pH 5.0 (5.0-6.5) Ur Specific [place] 1.010 (1.010-1.025) Urine Protein Negative (NEGATIVE) mg/dL Urine Glucose (UA) Normal (NORMAL) mg/dL Urine Ketones Negative (NEGATIVE) mg/dL Urine Occult Blood Large H (NEGATIVE) Urine Nitrite Negative (NEGATIVE) Urine Bilirubin Negative (NEGATIVE) Urine Urobilinogen Normal (NEGATIVE) mg/dL Ur Leukocyte Esterase Moderate H (NEGATIVE) Urine RBC 30-40 H (0-5) Urine WBC 10-20 H (0-5) Ur Squamous Epith Cells Few H (NS,R,O) Urine Bacteria Many H (NS) Meds: Medications Discontinued Medications Generic Name Dose Route Start Last Admin Trade Name Freq PRN Reason Stop Dose Admin Hydrocodone Bitart/Acetaminophen 1 tab 07/15/20 20:42 07/15/20 20:52 [place] 325-5 Mg PO 07/15/20 20:43 1 tab ONETIME ONE Administration Nitrofurantoin Macrocrystals 100 mg 07/15/20 20:43 07/15/20 20:53 Macrobid PO 07/15/20 20:44 Not Given ONETIME ONE Departure - Departure Time of Disposition: 20:30 Disposition: Admitted As Inpatient 66 Clinical Impression: Shortness of breath, Low grade fever - Discharge Information *PRESCRIPTION DRUG MONITORING PROGRAM REVIEWED*: Not Applicable *COPY OF PRESCRIPTION DRUG MONITORING REPORT IN PATIENT GARY: Not Applicable Referrals: Svetlana Vilchis NP [Primary Care Provider] - Additional Instructions: Take the Macrobid 1 tablet 2 x a day. Follow up with your primary care provider as needed. Call if you have any questions or come back to the Emergency room if symptoms is not better in any way or get worse. Sepsis Event Note (ED) - Focused Exam Vital Signs: Vital Signs Temp Pulse Resp BP Pulse Ox 07/15/20 21:00 36.3 C 93 17 150/95 H 96 07/15/20 19:30 90 17 152/96 H 96 07/15/20 18:05 37.8 C 95 20 174/66 H 97 - My Orders Last 24 Hours: My Active Orders 07/15/20 18:06 EKG 12 Lead [EK] Routine 07/15/20 18:08 Blood Culture x2 Reflex Set [OM.PC] Urgent 07/15/20 18:15 CULTURE BLOOD [BC] Urgent 07/15/20 18:20 CULTURE BLOOD [BC] Urgent - Assessment/Plan Last 24 Hours: My Active Orders 07/15/20 18:06 EKG 12 Lead [EK] Routine 07/15/20 18:08 Blood Culture x2 Reflex Set [OM.PC] Urgent 07/15/20 18:15 CULTURE BLOOD [BC] Urgent 07/15/20 18:20 CULTURE BLOOD [BC] Urgent
[2020-07-15 18:34] LABS: PCO2 VENOUS,POC 36 mmHg (41-51); PH VENOUS,POC 7.43 pH Units (7.32-7.43)
[2020-07-15 18:35] LABS: BASE EXCESS VENOUS,POC -1 mmol/L (-2-3)
--- NOTE | 2020-07-15 18:58 | CR ---
CHEST TWO VIEWS INDICATION: Shortness of breath. History of COPD. PA and lateral views of the chest 07/15/2020 were compared with 04/08/2020 and 04/09/2019. Heart size is difficult to evaluate but appears grossly normal. The aorta is calcified in the arch area. Somewhat demineralized appearance of the bony structures raises question of osteoporosis--correlate clinically. Bridging hyperostotic changes are noted in the mid to lower thoracic spine but extend into the upper thoracic spine also. The spine also shows evidence of dextroconvex scoliosis of mild to moderate degree. Pulmonary markings are similar to the previous examination without a definite active infiltrate or effusion. Pleural thickening is noted laterally as previously likely representing pleural fibrosis. Overlying EKG lead snaps are noted. Evidence of exogenous obesity is again noted. IMPRESSION: No acute process--overall fairly stable appearance of the chest. MTDD
[2020-07-15] MEDS ORDERED: Acetaminophen/HYDROcodone 325-5 MG Tab PO ONE (20:42)
[2020-07-15] MEDS ORDERED: Nitrofurantoin Monohydrate/Macrocrystalline 100 MG Cap PO ONE ×2 (20:43→20:57)
[2020-07-15 22:17] VITALS: BP 150/95; PULSE 93
--- NOTE | 2020-07-16 07:21 | ER ---
DATE SEEN: 07/15/2020 ADDENDUM: This is a 65-year-old who saw Dr. Hanna. She had come in with shortness of breath on and off for a day and intermittent pain in the chest over several days. She was pain free in the ER. PHYSICAL EXAMINATION: VITAL SIGNS: Blood pressure is 174/66 and she is febrile, temp of 100.0, oxygenation 97% on room air. CHEST: Clear. CARDIOVASCULAR: Normal. MENTAL STATUS: Alert. LABORATORY DATA: Reviewed and negative troponin and blood gas. Urine obtained for culture. Chest x-ray was negative and so was EKG. IMPRESSION: 1. Nonspecific chest pain. 2. Urinary tract infection. PLAN: Macrobid 100 mg b.i.d. for 5 days. She is admitted. Advised to see her PCP in 1 to 2 days. /[id number] BRENDA/SELENA
--- NOTE | 2020-07-18 15:06 | PCM.SN.2 ---
- Free Text/Narrative Note: 65-year-old female who was seen by both Dr. Hanna and Dr. Harmon on 07/15/2020 and was diagnosed with a UTI. She was placed on Macrobid for the UTI and the sensitivities came back for the organism which was Klebsiella pneumoniae which was not sensitive to nitrofurantoin. I was able to get in contact with the patient's daughter who is patient's care physician relations representative and I will call a prescription into [facility] (Keflex 500 mg) and the patient is to stop the Macrobid and start this medication to complete one tablet by mouth 3 times a day for 10 days. The patient's daughter does report that the patient has been doing okay but just tired. I have also urged the patient's daughter to have the patient follow-up with the primary doctor.
== END 2020-07-15 21:15 | disposition critical access hospital (66) ==
LOC: FB.ED 18:02
DX: R07.9 Chest pain, unspecified (principal); N39.0 Urinary tract infection, site not specified
CPT/HCPCS: 36415; 71046; 80053; 81001; 83605; 84484; 85025; 86140; 87040; 87086; 87088; 87186; 93005; 99284; 99285; A9270

== ENCOUNTER 2021-02-03 09:00 | Emergency (ER) | payer MEDICARE ==
[2021-02-03 09:25] VITALS: BP 154/88; PULSE 112
[2021-02-03] MEDS ORDERED: Sodium Chloride 0.9% 10 ML Syringe FLUSH PRN (09:44)
[2021-02-03] MEDS ORDERED: Ondansetron 4 MG/2 ML SDV IVPUSH STA ×2 (09:45→11:07)
[2021-02-03] MEDS ORDERED: Sodium Chloride 0.9% 1,000 ML IV SCH ×2 (09:45→11:15)
--- NOTE | 2021-02-03 10:16 | EDM.PDOC ---
ED HPI GENERAL MEDICAL PROBLEM - General Chief Complaint: Gastrointestinal Problem Stated Complaint: VOMITING, NAUSEA Time Seen by Provider: 02/03/21 09:10 Source of Information: Reports: Patient, Family History Limitations: Reports: No Limitations - History of Present Illness INITIAL COMMENTS - FREE TEXT/NARRATIVE: Patient is a 65 YO WF from [facility] who presented to the ED because of 2 day history of persistent N/V/D and couldn't keep anything down. She vomited many times and her stools are watery. She also c/o abdominal pain and cramping especially after vomiting. There is no fever but has chills. She has cough and cold and she was diagnosed with sinusitis 1 week ago and was prescribed oral antibiotics which she was not able to take because of her nausea. - Related Data Allergies Allergy/AdvReac Type Severity Reaction Status Date / Time atenolol [From Tenoretic 50] Allergy Rash Verified 07/15/20 19:34 chlorthalidone Allergy Rash Verified 07/15/20 19:34 [From Tenoretic 50] ciprofloxacin [From Cipro] Allergy Cannot Verified 07/15/20 19:34 Remember ciprofloxacin HCl Allergy Cannot Verified 07/15/20 19:34 [From Cipro] Remember diclofenac sodium Allergy Cannot Verified 07/15/20 19:34 [From Voltaren] Remember ibuprofen [From Advil] Allergy Cannot Verified 07/15/20 19:34 Remember iodine Allergy Hives Verified 07/15/20 19:34 propranolol HCl Allergy Swelling Verified 07/15/20 19:34 [From Inderal LA] Sulfa (Sulfonamide Allergy Rash Verified 07/15/20 19:34 Antibiotics) verapamil [Verapamil] Allergy Hives Verified 07/15/20 19:34 IVP DYES Allergy Hives Uncoded 07/15/20 19:34 METAL Allergy Rash Uncoded 07/15/20 19:34 Home Meds: Home Meds FLUoxetine [PROzac] 40 mg PO DAILY 07/26/13 [History] Levothyroxine [Synthroid] 100 mcg PO ACBRK 07/26/13 [History] Topiramate [Topamax] 400 mg PO BEDTIME 07/26/13 [History] modafiniL [Provigil] 200 mg PO DAILY PRN 07/26/13 [History] Potassium Chloride 20 meq PO BID 05/31/15 [History] rOPINIRole [Requip] 0.5 mg PO ASDIRECTED PRN 05/31/15 [History] SUMAtriptan succinate [Imitrex] 100 mg PO ASDIRECTED PRN 10/31/15 [History] Ascorbate Calcium [Vitamin C] 500 mg PO DAILY 04/16/17 [History] Aspirin [Halfprin] 81 mg PO DAILY 04/16/17 [History] Cranberry Fruit Extract [Cranberry] 500 mg PO DAILY 04/16/17 [History] Cyanocobalamin (Vitamin B-12) [Vitamin B-12] 1,000 mcg PO DAILY 04/16/17 [History] Ferrous Sulfate [Iron] 325 mg PO TID 04/16/17 [History] Multivitamin with Minerals [Multiple Vitamin] 1 tab PO DAILY 04/16/17 [History] Omeprazole 20 mg PO DAILY 04/16/17 [History] Promethazine [Phenergan] 25 mg PO Q4H PRN 04/16/17 [History] metFORMIN [Glucophage] 1,000 mg PO BIDM 01/14/19 [History] Cyclobenzaprine HCl 10 mg PO TID 02/07/19 [History] .Vitamin D High Potency 1,000 units PO DAILY 12/02/19 [History] Albuterol [Ventolin HFA] 2 puff INH Q4HR PRN 12/02/19 [History] Albuterol/Ipratropium [DuoNeb 3.0-0.5 MG/3 ML] 3 ml INH Q6H 12/02/19 [History] Brimonidine [Alphagan 0.2% Ophth Soln] 1 dose .XX ASDIRECTED 12/02/19 [History] Fluticasone Propionate [Flovent HFA 110 MCG] 2 puff INH BID 12/02/19 [History] Ibuprofen 200 mg PO Q4H PRN 12/02/19 [History] Insulin Glarg,Human.Rec.Analog [Lantus Solostar] 56 - 60 unit SUBCUT BEDTIME 12/02/19 [History] KCl/Na Sulf,Bicarb,Cl/PEG 3351 [GoLytely] 4,000 ml PO ONETIME #1 bottle 12/02/19 [Rx] Losartan [Cozaar] 50 - 100 mg PO DAILY 12/02/19 [History] Magnesium 400 mg PO DAILY 12/02/19 [History] Meclizine [Antivert] 25 mg PO ASDIRECTED PRN 12/02/19 [History] Mupirocin Oint [Bactroban Oint] 22 gm LISA BID 12/02/19 [History] Olodaterol HCl [Striverdi Respimat] 2 ampule IH DAILY 12/02/19 [History] Ondansetron [Zofran ODT] 4 mg PO Q4H PRN #7 tab.dis 12/02/19 [Rx] Pregabalin [Lyrica] 300 mg PO BID 12/02/19 [History] Tiotropium [place] [Spiriva Respimat] 2 puff INH DAILY 12/02/19 [History] Triamcinolone Acetonide [Kenalog 0.1% Crm] 1 applic TOP BID PRN 12/02/19 [History] clindamycin HCL [Cleocin] 600 mg PO ASDIRECTED PRN 12/02/19 [History] fluorouraciL [Efudex 5% Cream] 40 gm .XX ASDIRECTED 12/02/19 [History] cephALEXin [Keflex] 500 mg PO TID 10 Days #30 cap 07/18/20 [Rx] Ondansetron [Zofran ODT] 4 mg PO Q4H PRN #5 tab.dis 02/03/21 [Rx] Past Medical History HEENT History: Reports: Cataract, Impaired Vision, Sinusitis Other HEENT History: wears glasses Cardiovascular History: Reports: Hypertension Respiratory History: Reports: Asthma, COPD, Sleep Apnea Gastrointestinal History: Reports: Other (See Below) Other Gastrointestinal History: had 4 inches of colon removed for Crohns in 2011 Genitourinary History: Reports: Urinary Incontinence [employer] History: Reports: Other [employer] History: Musculoskeletal History: Reports: Arthritis, Fibromyalgia, Osteoarthritis, Other (See Below) Other Musculoskeletal History: bone spurs Neurological History: Reports: Migraines Psychiatric History: Reports: Anxiety, Depression Endocrine/Metabolic History: Reports: Diabetes, Type II, Hypothyroidism, Obesity/BMI 30+ Hematologic History: Reports: Anemia Immunologic History: Reports: Other (See Below) Other Immunologic History: torrey - Infectious Disease History Infectious Disease History: Reports: Chicken Pox, MRSA, Mumps, Shingles - Past Surgical History HEENT Surgical History: Reports: Naso-Sinus Surgery GI Surgical History: Reports: Appendectomy, Cholecystectomy, Colon, Colonoscopy, Hernia Repair/Other Female Surgical History: Reports: Hysterectomy Endocrine Surgical History: Reports: Other (See Below) Other Endocrine Surgeries/Procedures: thyroid problems hypothyroidism Musculoskeletal Surgical History: Reports: Joint Replacement Other Musculoskeletal Surgeries/Procedures:: both knees artificial jaw tmj Social & Family History - Family History Family Medical History: No Pertinent Family History HEENT: Reports: None Cardiac: Reports: None Respiratory: Reports: COPD Other Respiratory Family Hisory: father GI: Reports: Cirrhosis Other GI Family History: mother : Reports: None OBGYN: Reports: None Musculoskeletal: Reports: None Endocrine/Metabolic: Reports: None Hematologic: Reports: None Immunologic: Reports: None Dermatologic: Reports: None Oncologic: Reports: None - Caffeine Use Caffeine Use: Reports: Coffee ED ROS GENERAL - Review of Systems Review Of Systems: See Below Constitutional: Reports: Chills HEENT: Reports: No Symptoms Respiratory: Reports: Cough Cardiovascular: Reports: No Symptoms Endocrine: Reports: No Symptoms GI/Abdominal: Reports: Diarrhea, Nausea, Vomiting : Reports: No Symptoms Musculoskeletal: Reports: No Symptoms Skin: Reports: No Symptoms Neurological: Reports: Headache ED EXAM, GI/ABD - Physical Exam Exam: See Below Exam Limited By: No Limitations General Appearance: Alert, No Apparent Distress Ears: Normal External Exam Nose: Normal Inspection, Normal Mucosa, No Blood Throat/Mouth: Normal Inspection, Normal Lips, Normal Teeth Head: Atraumatic, Normocephalic Neck: Normal Inspection, Supple, Non-Tender, Full Range of Motion Respiratory/Chest: No Respiratory Distress, Lungs Clear, Normal Breath Sounds, No Accessory Muscle Use, Chest Non-Tender Cardiovascular: Normal Peripheral Pulses, Regular Rate, Rhythm, No Edema, No Gallop, No JVD, No Murmur, No Rub GI/Abdominal Exam: Normal Bowel Sounds, Soft, Other (hyperactive BS, tenderness over the epigasrtium, RLW and suprapubic area) Back Exam: Normal Inspection, Full Range of Motion Extremities: Normal Inspection, Normal Range of Motion, Non-Tender, No Pedal Edema Neurological: Alert, Oriented, CN II-XII Intact, Normal Cognition Course - Vital Signs Text/Narrative:: Lab result was reviewed and discussed with patient and her daughter NS 1 L bolus x 2 Zofran 4 mg IV x2 doses Klor con 40 meq po x1 Last Recorded V/S: Last Vital Signs Temp 35.8 C L 02/03/21 09:01 Pulse 112 H 02/03/21 09:01 Resp 20 02/03/21 09:01 BP 154/88 H 02/03/21 09:01 Pulse Ox 98 02/03/21 09:01 - Orders/Labs/Meds Orders: Active Orders 24 hr Category Date Time Status UA W/MICROSCOPIC [URIN] Stat Lab 02/03/21 09:44 Ordered Sodium Chloride 0.9% [Normal Saline] 1,000 ml Med 02/03/21 09:45 Active IV ASDIRECTED Sodium Chloride 0.9% [Normal Saline] 1,000 ml Med 02/03/21 11:15 Active IV ASDIRECTED Sodium Chloride 0.9% [Saline Flush] Med 02/03/21 09:44 Active 10 ml FLUSH ASDIRECTED PRN Saline Lock Insert [OM.PC] Routine Oth 02/03/21 09:44 Ordered Medication Orders Sodium Chloride (Normal Saline) 1,000 mls @ 999 mls/hr IV ASDIRECTED JONATHAN Last Admin: 02/03/21 10:22 Dose: 999 mls/hr Documented by: OSCAR Sodium Chloride (Normal Saline) 1,000 mls @ 999 mls/hr IV ASDIRECTED JONATHAN Sodium Chloride (Sodium Chloride 0.9% 10 Ml Syringe) 10 ml FLUSH ASDIRECTED PRN PRN Reason: Keep Vein Open Last Admin: 02/03/21 10:20 Dose: 10 ml Documented by: OSCAR Labs: Laboratory Tests 02/03/21 02/03/21 02/03/21 Range/Units 10:17 10:17 10:17 WBC 15.0 H (3.0-10.3) x10-3/uL RBC 4.65 (3.60-5.20) x10(6)uL Hgb 12.6 (11.4-15.5) g/dL Hct 39.7 (34.2-48.2) % MCV 85.5 (76.7-100.5) fL MCH 27.1 (23.9-33.9) pg MCHC 31.6 L (31.9-34.8) g/dL RDW 17.4 H (12.3-16.5) % Plt Count 224 (151-488) x10(3)uL MPV 8.3 (7.1-12.4) fL Neut % (Auto) 81.6 H (30.8-76.2) % Lymph % (Auto) 12.9 L (18.4-52.1) % [place] % (Auto) 4.8 (4.4-15.7) % Eos % (Auto) 0.4 L (0.6-8.1) % Baso % (Auto) 0.3 (0.2-1.5) % Neut # (Auto) 12.3 H (1.5-6.3) x10-3/uL Lymph # (Auto) 1.9 (1.0-4.4) x10-3/uL [place] # (Auto) 0.7 (0.3-1.0) x10-3/uL Eos # (Auto) 0.1 (0.0-0.8) x10-3/uL Baso # (Auto) 0.0 (0.0-0.1) x10-3/uL Sodium 147 H (135-145) mmol/L Potassium 3.4 L (3.5-5.3) mmol/L Chloride 108 (100-110) mmol/L Carbon Dioxide 24 (21-32) mmol/L BUN 25 H (7-18) mg/dL Creatinine 0.9 (0.55-1.02) mg/dL Est Cr Clr Drug Dosing 44.76 mL/min Estimated GFR (MDRD) > 60 (>60) BUN/Creatinine Ratio 27.8 H (9-20) Glucose 110 (80-116) mg/dL Lactic Acid (0.4-2.0) mmol/L Calcium 9.8 (8.6-10.2) mg/dL Total Bilirubin 0.7 (0.1-1.3) mg/dL AST 22 D (5-25) IU/L ALT 32 D (12-36) U/L Alkaline Phosphatase 74 (56-112) IU/L Total Protein 7.7 (6.0-8.0) g/dL Albumin 3.3 (3.2-4.6) g/dL Globulin 4.4 g/dL Albumin/Globulin Ratio 0.8 Amylase 45 (25-115) U/L Lipase 81 (73-393) U/L 02/03/21 Range/Units 10:17 WBC (3.0-10.3) x10-3/uL RBC (3.60-5.20) x10(6)uL Hgb (11.4-15.5) g/dL Hct (34.2-48.2) % MCV (76.7-100.5) fL MCH (23.9-33.9) pg MCHC (31.9-34.8) g/dL RDW (12.3-16.5) % Plt Count (151-488) x10(3)uL MPV (7.1-12.4) fL Neut % (Auto) (30.8-76.2) % Lymph % (Auto) (18.4-52.1) % [place] % (Auto) (4.4-15.7) % Eos % (Auto) (0.6-8.1) % Baso % (Auto) (0.2-1.5) % Neut # (Auto) (1.5-6.3) x10-3/uL Lymph # (Auto) (1.0-4.4) x10-3/uL [place] # (Auto) (0.3-1.0) x10-3/uL Eos # (Auto) (0.0-0.8) x10-3/uL Baso # (Auto) (0.0-0.1) x10-3/uL Sodium (135-145) mmol/L Potassium (3.5-5.3) mmol/L Chloride (100-110) mmol/L Carbon Dioxide (21-32) mmol/L BUN (7-18) mg/dL Creatinine (0.55-1.02) mg/dL Est Cr Clr Drug Dosing mL/min Estimated GFR (MDRD) (>60) BUN/Creatinine Ratio (9-20) Glucose (80-116) mg/dL Lactic Acid 1.5 (0.4-2.0) mmol/L Calcium (8.6-10.2) mg/dL Total Bilirubin (0.1-1.3) mg/dL AST (5-25) IU/L ALT (12-36) U/L Alkaline Phosphatase (56-112) IU/L Total Protein (6.0-8.0) g/dL Albumin (3.2-4.6) g/dL Globulin g/dL Albumin/Globulin Ratio Amylase (25-115) U/L Lipase (73-393) U/L Meds: Medications Generic Name Dose Route Start Last Admin Trade Name Freq PRN Reason Stop Dose Admin Sodium Chloride 1,000 mls @ 999 mls/hr 02/03/21 09:45 02/03/21 10:22 Normal Saline IV 999 mls/hr ASDIRECTED JONATHAN Administration Sodium Chloride 1,000 mls @ 999 mls/hr 02/03/21 11:15 Normal Saline IV ASDIRECTED JONATHAN Sodium Chloride 10 ml 02/03/21 09:44 02/03/21 10:20 Sodium Chloride 0.9% 10 Ml Syringe FLUSH 10 ml ASDIRECTED PRN Administration Keep Vein Open Discontinued Medications Generic Name Dose Route Start Last Admin Trade Name Freq PRN Reason Stop Dose Admin Ondansetron HCl 4 mg 02/03/21 09:45 02/03/21 10:41 Ondansetron 4 Mg/2 Ml Sdv IVPUSH 02/03/21 09:46 4 mg NOW STA Administration Ondansetron HCl 4 mg 02/03/21 11:07 Ondansetron 4 Mg/2 Ml Sdv IVPUSH 02/03/21 11:08 NOW STA Potassium Chloride 40 meq 02/03/21 11:09 Potassium Chloride 20 Meq Tab.Er PO 02/03/21 11:10 NOW STA Departure - Departure Time of Disposition: 13:00 Disposition: Home, Self-Care 01 Condition: Good Clinical Impression: Gastroenteritis, Dehydration, Hypokalemia, Hypokalemia, Gastroenteritis - Discharge Information Prescriptions: Ondansetron [Zofran ODT] 4 mg PO Q4H PRN #5 tab.dis PRN Reason: Nausea Referrals: Svetlana Vilchis NP [Primary Care Provider] - Forms: ED Department Discharge Additional Instructions: Please read discharge instructions on gastroenteritis, dehydration, low potassium Frequent hand washing Drink at least 2-4 liters of water daily until your diarrhea is gone Zofran odt every 4 hours as needed for nausea/vomiting Imodium 2 tablets every 6 hours as needed for diarrhea Follow up as needed Sepsis Event Note (ED) - Focused Exam Vital Signs: Vital Signs Temp Pulse Resp BP Pulse Ox 02/03/21 09:01 35.8 C L 112 H 20 154/88 H 98 - My Orders Last 24 Hours: My Active Orders 02/03/21 09:44 UA W/MICROSCOPIC [URIN] Stat Sodium Chloride 0.9% [Saline Flush] 10 ml FLUSH ASDIRECTED PRN Saline Lock Insert [OM.PC] Routine 02/03/21 09:45 Sodium Chloride 0.9% [Normal Saline] 1,000 ml IV ASDIRECTED 02/03/21 11:15 Sodium Chloride 0.9% [Normal Saline] 1,000 ml IV ASDIRECTED - Assessment/Plan Last 24 Hours: My Active Orders 02/03/21 09:44 UA W/MICROSCOPIC [URIN] Stat Sodium Chloride 0.9% [Saline Flush] 10 ml FLUSH ASDIRECTED PRN Saline Lock Insert [OM.PC] Routine 02/03/21 09:45 Sodium Chloride 0.9% [Normal Saline] 1,000 ml IV ASDIRECTED 02/03/21 11:15 Sodium Chloride 0.9% [Normal Saline] 1,000 ml IV ASDIRECTED
[2021-02-03] MEDS ORDERED: Potassium Chloride 20 MEQ Tab.ER PO STA (11:09)
== END 2021-02-03 13:22 | disposition home or self-care (01) ==
LOC: FB.ED 09:00
DX: E86.0 Dehydration (principal); K52.9 Noninfective gastroenteritis and colitis, unspecified; E87.6 Hypokalemia; I10 Essential (primary) hypertension; J44.9 Chronic obstructive pulmonary disease, unspecified; M19.90 Unspecified osteoarthritis, unspecified site; E11.9 Type 2 diabetes mellitus without complications; E03.9 Hypothyroidism, unspecified; D64.9 Anemia, unspecified; E66.9 Obesity, unspecified; Z68.36 Body mass index [BMI] 36.0-36.9, adult; Z88.8 Allergy status to other drugs, medicaments and biological substances; Z88.1 Allergy status to other antibiotic agents; Z88.6 Allergy status to analgesic agent; Z88.2 Allergy status to sulfonamides; Z91.041 Radiographic dye allergy status; Z91.048 Other nonmedicinal substance allergy status; Z79.82 Long term (current) use of aspirin; Z79.4 Long term (current) use of insulin; Z79.899 Other long term (current) drug therapy
CPT/HCPCS: 36415; 80053; 82150; 83605; 83690; 85025; 96374; 96376; 99284; A9270; J2405; J7030